=== PATIENT | male | born 1960 | race Caucasian/White ===

== ENCOUNTER → 2018-11-18 20:05 | Outpatient (CLI) | payer MEDICARE, SELFPAY | PROVIDERS: Family Provider Internal Medicine; PCP Internal Medicine | DX: G47.33 Obstructive sleep apnea (adult) (pediatric) (principal) | CPT/HCPCS: 95811 ==

== ENCOUNTER 2019-07-01 08:48 | Day surgery (SDC) | payer MEDICARE, SELFPAY ==
--- NOTE | 2019-06-02 02:15 | HP_ITS ---
Intake Vital Signs 06/02/19 Height 5 ft 8 in 06/02/19 Weight: 210 lb 06/02/19 Body Mass Index (BMI) 31.9 06/02/19 Blood Pressure 139/90 H 06/02/19 Blood Pressure Location Rt brachial 06/02/19 Respiratory Rate 16 06/02/19 Pulse Rate 81 06/02/19 Pulse Source Monitor 06/02/19 Temperature 98.2 F 06/02/19 Pulse Ox 96 06/02/19 Oxygen Delivery Method room air Intake Visit Reasons: C-Scope Consult Manager Java Required: No Is patient in pain?: No Allergies lisinopril Allergy (Unknown, Verified 06/02/19 14:07) Unknown metformin Allergy (Unknown, Verified 06/02/19 14:07) Unknown [facility] Medical History (Updated 06/02/19 @ 14:02 by Makeda Santana) Blood in stool (Acute) Constipation (Acute) Fatigue (Acute) Hypertension (Chronic) Sleep apnea (Acute) Hypogonadism in male (Acute) Hyperlipidemia (Acute) GERD (gastroesophageal reflux disease) (Acute) Diabetes mellitus (Acute) Surgical History (Updated 06/02/19 @ 14:02 by Makeda Santana) Hx of vasectomy (Acute) Hx of umbilical hernia repair (Acute) Hx of bilateral cataract extraction (Acute) Hx of colonoscopy (Acute) Family History (Updated 06/02/19 @ 14:03 by Makeda Santana) Mother CVA (cerebral vascular accident) Father Hypertension Brother Myocardial infarction Heart disease Social History (Updated 06/02/19 @ 14:15 by Alberto Borges MD) Smoking Status: Never smoker second hand exposure: No alcohol intake: current alcohol intake frequency: holidays/special occasions only substance use type: does not use caffeine: Yes what type of physical activity do you participate in: none frequency: does not exercise HPI HPI HPI: NEPTALI GREENE, is a 58 M who presents to the office today for HPI HPI Surgical H&P: Yes HPI: NEPTALI GREENE, is a 58 M who presents to the office today for surgical consultation regarding Hemoccult positive stool. The patient was referred by his primary care from Dr. Marcell Rodriguez written copy of my surgical consult recommendations will be returned to him. The patient is 58. He is on disability from chronic back pain. Is been a long-term diabetic. He thinks his most recent hemoglobin A1c was in the nines. States that he really does not pay attention to his diet. May 12 his hemoglobin was 6.1 with hematocrit 47.3 and a platelet count of 235,000. Glucose was 165 BUN 14 creatinine 0.96. Hemoglobin A1c was 9.4. His last colonoscopy was in 2012. Is a previous history of GERD with esophagitis. He has sleep apnea but states he cannot afford the machine. Hyperlipidemia. Is on low-dose aspirin. He denies personal history of colon polyps. I have assisted him in the past. He has requested that I assist him currently with his Hemoccult positive stool concerns. He was seen by another surgeon but would prefer not having him perform the procedure Exam Const General: cooperative, comfortable Nutritional Appearance: obese Orientation: alert, awake HENAR Head: normal to inspection Chest Chest palpation & inspection: normal inspection of the chest Resp Effort & Inspection: normal respiratory effort Auscultation: clear to auscultation bilaterally Cardio Rate: regular rate Rhythm: regular rhythm GI Palpation: soft, no hepatosplenomegaly Auscultation: normal bowel sounds Skin Other: Multiple areas bilateral upper extremities of self-induced excoriations Neuro Other: Some moderate memory deficit Extrem General: no calf tenderness bilaterally Psych Affect: normal affect Assessment & Plan Problems 1. Blood in stool K92.1 Plan I recommend the patient a esophagogastroduodenoscopy with possible biopsy and colonoscopy with possible biopsy or polypectomy as indicated. He is aware of the technique, benefits, risks, alternatives. He has had an opportunity to ask and have questions answered. We will schedule and proceed as noted. Because of his medical comorbidities I recommend proceeding with monitored anesthesia care. He is not demonstrating any anemia. He is on low-dose aspirin and this may be the eliciting feature. CC: Dr. Marcell Borges M.D., F.A.C.S. Coding Level of Care Code Off vis,new,level 3 Diagnoses Blood in stool K92.1 06/02/19 1415 <Electronically signed by Alberto zamora MD> Date _ Alberto Borges MD I have re-examined the patient. There are no clinical changes since date of exam.
[2019-06-02 14:05] VITALS: BMI 31.9
[2019-07-01] VITALS (7 sets, daily range): BP systolic 101–142; BP diastolic 73–77; PULSE 70–82; RESP 16–18; TEMP 36.5–36.7; O2SAT 94–99; BMI 31.6
[2019-07-01 09:30] LABS: Bedside Glucose 100 mg/dL (70-110)
--- NOTE | 2019-07-01 09:45 | IMM_PTH ---
PATIENT: NEPTALI GREENE LOC: EN U#:[id number] AGE/SX: 58/M ROOM: RE07/01/[address]: Dr. Alberto Borges MD : 1960 BED: DIS: 07/01/2019 SPEC #: [id number] RECD: 07/01/19 13:29 STATUS: MAURIZIO REQ #: [id number] ANGEL: 07/01/19 09:[address]: Alberto Borges DEPT: IMMUNOHISTOCHEMISTRY RECD BY: Angela Jacinto ENTERED: 07/01/19 13:30 SP TYPE: IMMUNO OTHR DR: Dr. Marcell Rodriguez MD Tissues: B - Stomach, NOS Procedures: H Pylori (initial) PHYSICIAN & INSTITUTION [place] [id number] SPECIMEN INFORMATION: Tissue Source: B - Antral biopsy Clinical Info: Blood in stool Specimen Number: [id number] CPT code: 22682 METHODOLOGY: Deparaffinized sections of prefer/formalin-fixed tissue or PAP/DQ stained slides are incubated with monoclonal/polyclonal antibodies/oligonucleotide probes. Localization is made via biotin free immunoperoxidase method. Appropriate controls are performed and reacted as expected. Results on target cell population are indicated in the following table: RESULTS: ANTIBODY / CLONE RESULT Block B H Pylori (polyclonal) negative These tests were developed and their performance characteristics determined by [facility]. They may not have been cleared or approved by the U.S. Food and Drug Administration. The FDA has determined that such clearance or approval is not necessary. INTERPRETATION: B. Antral biopsy: Negative for Helicobacter pylori organisms. SJ:jennifer 07/02/19
--- NOTE | 2019-07-01 09:45 | EGD_PTH ---
PATIENT: NEPTALI GREENE LOC: EN U#:[id number] AGE/SX: 58/M ROOM: RE07/01/[address]: Dr. Alberto Borges MD : 1960 BED: DIS: 07/01/2019 SPEC #: [id number] RECD: 07/01/19 11:35 STATUS: MAURIZIO JEANNIE #: [id number] ANGEL: 07/01/19 09:[address]: Alberto Borges DEPT: SURGICAL PATHOLOGY RECD BY: Anjel Gastelum ENTERED: 07/01/19 13:06 SP TYPE: EGD BIOPSY OTHR DR: Dr. Marcell Rodriguez MD Tissues: A - Duodenum, NOS B - Gastric mucous membrane C - Gastric mucous membrane D - Transverse colon E - Sigmoid colon biopsy Procedures: Special Stain Group II Surgery Specimen Level IV Alcian Blue/PAS (control) HEADER OPERATION: [place] [place] DIAGNOSIS: Blood in stool TISSUE SUBMITTED: A - Duodenal biopsy, B - Antral biopsy for histo and H. pylori, C - GE junction biopsy, D - Distal transverse polyp, E - Proximal sigmoid polyp MICROSCOPIC DIAGNOSIS A. Duodenal biopsy: A fragment of duodenal mucosa with mild congestion and hemorrhage. B. Antral biopsy: Mild gastritis. Focal mucosal congestion. See microscopic description and comment. C. GE junction, biopsy: Fragments of gastroesophageal mucosa with mild to moderate chronic inflammation and congestion. Intestinal metaplasia (goblet cell metaplasia) is not identified. See comment. D. Distal transverse colon polyp, biopsy: Tubular adenoma. E. Proximal sigmoid colon polyp, biopsy: Tubular adenoma. SJ:jennifer 07/02/19 COMMENT B. The results of immunohistochemistry for Helicobacter pylori will be reported separately ([id number]). C. Alcian blue/PAS stain with matched control is used in the evaluation of the specimen. MICROSCOPIC DESCRIPTION Slides are reviewed. B. The specimen shows fragments of gastric mucosa with chronic inflammatory cell infiltrates in the lamina propria consisting of lymphocytes and plasma cells, consistent with mild chronic gastritis. Focal mucosal congestion is also noted. GROSS DESCRIPTION A - Received in fixative is one container labeled with the patient's name and designated duodenal biopsy. The specimen consists of one irregular fragment of light davidson soft tissue that measures 0.4 x 0.3 x 0.1 cm. The specimen is totally submitted in one cassette. B - Received in fixative is one container labeled with the patient's name and designated antral biopsy. The specimen consists of one irregular fragment of light davidson soft tissue that measures 0.4 x 0.3 x 0.1 cm. The specimen is totally submitted in one cassette. C - Received in fixative is one container labeled with the patient's name and designated GE junction biopsy. The specimen consists of multiple irregular fragments of light davidson soft tissue that in aggregate measure 0.8 x 0.5 x 0.1 cm. The specimen is totally submitted in one cassette. D - Received in fixative is one container labeled with the patient's name and designated distal transverse polyp. The specimen consists of a davidson-pink polyp measuring 0.6 x 0.6 x 0.4 cm. The specimen is totally submitted in one cassette. E - Received in fixative is one container labeled with the patient's name and designated proximal sigmoid polyp. The specimen consists of a pink-red polyp measuring 0.8 x 0.8 x 0.5 cm. The apparent base is inked. The polyp is bisected and submitted entirely in one cassette. / SJ:jennifer 07/01/19 TC:1 CPT: 98146 x5, 09111
--- NOTE | 2019-07-01 11:02 | OP.ENDO_ITS ---
07/01/2019 Marcell Rodriguez Re : Upper GI endoscopy procedure for Chao Mancini Dear Jennifer This procedure was performed on Monday, July 01, 2019. My impressions and recommendations are as follows: Impressions : - LA Grade A reflux esophagitis. Biopsied. - Small hiatal hernia. - Erythematous mucosa in the antrum. Biopsied. - Erythematous duodenopathy. Biopsied. Recommendations : - Discharge patient to home. - Resume previous diet. - Continue present medications. - Await pathology results. - Telephone my office for pathology results in 1 week. This findings would correlate with hemocult positive stool My findings are described in the full procedure note, which is enclosed. If I can be of further assistance, please feel free to contact me at Doctor phone number(s): Work: . Sincerely, Alberto Borges MD 07/01/2019 11:02:04 AM This report has been signed electronically.
--- NOTE | 2019-07-01 11:08 | OP.ENDO_ITS ---
07/01/2019 Marcell Rodriguez Re : Colonoscopy procedure for Chao Mancini Dear Jennifer This procedure was performed on Monday, July 01, 2019. My impressions and recommendations are as follows: Impressions : - Non-thrombosed external hemorrhoids, non-thrombosed internal hemorrhoids, internal hemorrhoids that prolapse with straining, but spontaneously regress to the resting position (Grade II) and enlarged prostate found on digital rectal exam. - Diverticulosis in the entire examined colon--extensive - One 10 mm polyp in the distal transverse colon, removed with a hot snare. Resected and retrieved. - One 11 mm polyp in the proximal sigmoid colon, removed with a hot snare. Resected and retrieved. Recommendations : - Repeat colonoscopy in 3 years for surveillance based on pathology results. - Telephone my office for pathology results in 1 week. Polyps possible source of blood loss triggering hemocult test. - Continue present medications. My findings are described in the full procedure note, which is enclosed. If I can be of further assistance, please feel free to contact me at Doctor phone number(s): Work: . Sincerely, Alberto Borges MD 07/01/2019 11:08:03 AM This report has been signed electronically.
[2019-07-01] MEDS: Lactated Ringers 1,000 ML 100 ML IV (11:14)
== END 2019-07-01 11:54 | disposition home or self-care (01) ==
LOC: EN 08:49 → AC 08:52
PROVIDERS: Family Provider Family Medicine; PCP Family Medicine; Referring Provider Family Medicine; Visit Provider Surgery
PROC: 0DJD8ZZ Inspection of Lower Intestinal Tract, Via Natural or Artificial Opening Endoscopic (ICD-10-PCS; CPT 45378; principal; 2019-07-01 09:40)
DX: K29.70 Gastritis, unspecified, without bleeding (principal); K21.0 Gastro-esophageal reflux disease with esophagitis; K44.9 Diaphragmatic hernia without obstruction or gangrene; K64.1 Second degree hemorrhoids; K64.4 Residual hemorrhoidal skin tags; K57.30 Diverticulosis of large intestine without perforation or abscess without bleeding; D12.5 Benign neoplasm of sigmoid colon; D12.3 Benign neoplasm of transverse colon; I10 Essential (primary) hypertension; G47.30 Sleep apnea, unspecified; E78.00 Pure hypercholesterolemia, unspecified; E11.9 Type 2 diabetes mellitus without complications; F32.9 Major depressive disorder, single episode, unspecified; E66.9 Obesity, unspecified; Z68.31 Body mass index [BMI] 31.0-31.9, adult; Z79.4 Long term (current) use of insulin; Z79.82 Long term (current) use of aspirin; Z79.899 Other long term (current) drug therapy
CPT/HCPCS: 43239; 45385; 82962; 88305; 88313; 88342; J7120; J2405

== ENCOUNTER 2021-07-28 12:29 | Emergency (ER) | payer MEDICARE, SELFPAY ==
[2021-07-28 12:29] VITALS: BP 180/93; PULSE 84; RESP 16; TEMP 36.4; O2SAT 97; BMI 35.4
[2021-07-28] MEDS: Ondansetron 4 MG/2 ML Vial IV (15:43)
[2021-07-28] MEDS: 0.9% Normal Saline 1,000 ML 1000 ML IV (15:43)
[2021-07-28 15:56] LABS: Absolute Lymphocyte Count 2.99 X10^3/uL (0.83-4.51); Absolute Neutrophil Count 6.7 X10^3/uL (2.0-7.7); Basophil# 0.05 X10^3/uL; Basophil% 0.5 % (0-1); Eosinophil# 0.12 X10^3/uL; Eosinophils% 1.1 % (0-5); Hematocrit 46.2 % (40-54); Hemoglobin 15.9 g/dL (13.0-16.5); Lymphocyte # 2.99 X10^3/ul (0.83-4.51); Lymphocyte % 27.1 % (19-41); Mean Corp Hgb Conc 34.4 g/dL (32-36); Mean Corpuscular Hgb 30.2 pg (27.0-32.0); Mean Corpuscular Volume 87.7 fL (80-94); Mean Platelet Vol. 10.3 fl (6.2-12.0); Monocyte# 1.14 X10^3/uL; Monocyte% 10.3 % (0-10); NRBC Flagged by Analyzer 0 % (0-5); Neutrophil % 60.6 % (47-70); Platelet Count 261 K/mm3 (150-450); RBC Distribution Width CV 12.7 % (11.6-14.6); Red Blood Count 5.27 M/mm3 (4.6-6.2)
[2021-07-28 16:14] LABS: ALB/GLOB Ratio 0.9 RATIO (0.9-2.4); AST(SGOT) 38 U/L (15-37); Alanine Aminotransfer ALT/SGPT 73 U/L (16-61); Albumin, Serum 3.5 g/dL (3.2-5.0); Alkaline Phosphatase 69 U/L (45-117); Anion Gap 5 (5-15); BUN 19 mg/dL (7-18); BUN/Creat Ratio 18.3 RATIO (10-20); Calcium,Total 9.1 mg/dL (8.5-10.1); Chloride 104 mmol/L (98-107); Creatinine, Serum 1.04 mg/dL (0.70-1.30); EST Glomerular Filtration Rate 77 mL/min (>60); Est Glom Filt Rate - Afr Amer 94 mL/min (>60); Estimated Creatinine Clearance 73.99 ml/min; Glucose 117 mg/dL (74-106); Lipase 82 U/L (73-393); Potassium 3.8 mmol/L (3.5-5.1); Protein, Total 7.5 g/dL (6.4-8.2); Sodium Level 137 mmol/L (136-145)
[2021-07-28 16:37] LABS: Bacteria 0 SEEN /hpf (None Seen); Red Blood Cells-Urine 0 SEEN /hpf (0-5); Squamous Epithelial Cells - UA 0 SEEN /hpf (0-5); White Blood Cells 0 SEEN /hpf (0-5)
[2021-07-28 16:43] LABS: Color, Urine Yellow (Yellow); Glucose, Dipstick Normal (Normal); Ketone-Dipstick Negative (Negative); Leukocyte Esterase-Dipstick Negative /ul (Negative); Nitrite-Dipstick Negative (Negative); Occult Blood-Urine Negative /ul (Negative); Protein-Dipstick 15 mg/dl (Negative); Specific Gravity, Urine 1.015 (1.002-1.030); Urine Bilirubin Dipstick Negative (Negative); Urine Clarity Clear (Clear); Urine Urobilinogen Normal (Normal)
[2021-07-28 16:51] LABS: Mucous, Urine RARE /hpf (<or=2+)
[2021-07-28] MEDS: Acetaminophen 500 MG Tablet 1000 MG PO (16:51)
[2021-07-28 16:55] VITALS: BP 153/97; PULSE 79; RESP 16; O2SAT 97
--- NOTE | 2021-07-28 18:46 | ED.VIS.GI ---
HPI HPI - GI History of Present Illness Chief Complaint: Nausea/Vomiting Informant: patient Abdominal Pain/Flank Pain Onset: Weeks (1) Context: Gradual Onset Timing: Waxes and wanes Quality: Cramping (Mild) Location: Diffuse Worsened by: Nothing Nausea/Vomiting/Emesis GI Symptom: Positive for Nausea and Vomiting Quality: Negative for Coffee ground and Hematemesis Diarrhea/Melena/Hematochezia GI Symptom: Negative for Diarrhea, Melena and Hematochezia Stool Quality: Negative for Black, Maroon and BRB per rectum Narrative Narrative: Patient presents with abdominal pain, nausea, and vomiting that has been getting worse over the past week. Patient states it started 1 week ago and then started to get better. Patient states that then became worse again yesterday. Patient states that he has been having some nausea and vomiting. Patient states he is unable to keep anything down. Patient denies any diarrhea, melena, or hematochezia. Patient denies any dysuria or hematuria. Patient admits to some subjective chills but denies any fevers. Patient states his abdominal pain is just mild cramping. reports that the patient started a new diabetic medication recently. [facility] Medical History Blood in stool Constipation Diabetes mellitus Diabetic retinopathy associated with type 2 diabetes mellitus Fatigue GERD (gastroesophageal reflux disease) Hyperlipidemia Hypertension Hypogonadism in male Sleep apnea Home Medications aspirin 81 mg tablet,delayed release 81 mg PO DAILY 06/02/19 [History Last Taken Unknown] cholecalciferol (vitamin D3) 25 mcg (1,000 unit) capsule 1,000 unit PO DAILY 06/02/19 [History Last Taken Unknown] fluoxetine 20 mg capsule 20 mg PO DAILY #90 cap 06/02/19 [History Last Taken Unknown] losartan 100 mg tablet 100 mg PO DAILY #90 tab 06/02/19 [History Last Taken Unknown] olanzapine 5 mg tablet 5 mg PO QHS #90 tab 06/02/19 [History Last Taken Unknown] pravastatin 40 mg tablet 40 mg PO QHS #90 tab 06/02/19 [History Last Taken Unknown] blood sugar diagnostic #400 ea 12/28/20 [Rx Last Taken Unknown] blood-glucose meter #1 ea 12/28/20 [Rx Last Taken Unknown] insulin regular hum U-500 conc See Rx Instructions SC TID #42 ml 02/04/21 [Rx Last Taken Unknown] omeprazole 40 mg capsule,delayed release 40 mg PO DAILY cap 02/04/21 [History Last Taken Unknown] dulaglutide [Trulicity] 1.5 mg SUBCUT WE 07/28/21 [History Last Taken Unknown] Allergy/AdvReac Type Severity Reaction Status Date / Time lisinopril Allergy Intermediate Hives Verified 07/28/21 12:31 metformin Allergy Intermediate Effects Verified 07/28/21 12:31 Kidneys Family History Mother CVA (cerebral vascular accident) Father Hypertension Brother Myocardial infarction Heart disease Surgical History Hx of bilateral cataract extraction Hx of colonoscopy Hx of umbilical hernia repair Hx of vasectomy Social History Smoking Status: Never smoker second hand exposure: No alcohol intake: current alcohol intake frequency: holidays/special occasions only substance use type: does not use caffeine: Yes what type of physical activity do you participate in: none frequency: does not exercise ROS ROS ED Constitutional Constitutional ED: Reports chills and subjective; Denies fever(s) Eyes Eyes: Denies blurry vision or change in vision ENT ENT ED: Denies rhinorrhea or sore throat Cardiovascular Cardiovascular: Denies chest pain or palpitations Respiratory/Chest Respiratory/Chest: Denies cough or dyspnea Gastrointestinal Gastrointestinal: Reports nausea and vomiting Genitourinary Genitourinary ED: Denies dysuria or hematuria Musculoskeletal Musculoskeletal: Denies back pain or neck pain Integumentary Denies abscess or rash Neurologic Neurologic: Reports headache(s); Denies weakness Allergic/Immunologic Allergic/Immunologic ED: Denies mouth swelling or urticaria EXAM Physical Exam Const Vital Signs: 07/28/21 12:29 07/28/21 16:55 Temperature 97.5 F L Temperature Source Temporal Pulse Rate 84 79 Respiratory Rate 16 16 Blood Pressure 180/93 H 153/97 H Blood Pressure Mean 122 115 Pulse Ox 97 97 Oxygen Delivery Method Room Air Room Air Positive well nourished and well developed General Appearance ED: well developed HEENT Reports moist mucous membranes Neck supple and no JVD Resp normal respiratory effort and clear to auscultation bilaterally Cardio regular rate, regular rhythm and no murmurs GI normal to inspection, nondistended, normoactive bowel sounds, non-tender and non-distended Auscultation: normoactive bowel sounds Palpation: soft Extremity normal to inspection General Extremety ED: Negative for edema or tenderness General Extremity: Negative for edema Neuro oriented x3, CN's II-XII intact bilaterally, moves all extremities, no sensory deficits noted and gait normal Sensorium / Orientation: alert Motor Exam: strength 5/5 throughout Psych mental status grossly normal Skin no rashes or lesions noted MDM MDM MDM Narrative Medical decision making narrative: Patient was given IV fluids, morphine, and Tylenol. CBC was within normal limits. Comprehensive metabolic profile was within normal limits. Urinalysis does not show any evidence of urinary tract infection. Patient is feeling better on reevaluation. Patient was advised of his findings. Patient was instructed to follow-up with his primary care physician in 3 to 5 days. Patient and question whether or not he should stop his new diabetic medication. I informed him that he should contact his primary care physician regarding this. Patient and his understood and were agreeable with the plan. All questions were answered. Lab Data Labs: Laboratory Results - last 24 hr 07/28/21 07/28/21 07/28/21 15:44 15:44 16:31 WBC 11.0 RBC 5.27 Hgb 15.9 Hct 46.2 MCV 87.7 MCH 30.2 MCHC 34.4 RDW Std Deviation 41.0 RDW Coeff of Eugene 12.7 Plt Count 261 MPV 10.3 Immature Gran % (Auto) 0.400 Neut % (Auto) 60.6 Lymph % (Auto) 27.1 Sullivan % (Auto) 10.3 H Eos % (Auto) 1.1 Baso % (Auto) 0.5 Absolute Neuts (auto) 6.7 Absolute Lymphs (auto) 2.99 Nucleated RBC % 0 Sodium 137 Potassium 3.8 Chloride 104 Carbon Dioxide 28.0 Anion Gap 5 BUN 19 H Creatinine 1.04 Estim Creat Clear Calc 73.99 Est GFR (MDRD) Af Amer 94 Est GFR (MDRD) Non-Af 77 BUN/Creatinine Ratio 18.3 Glucose 117 H Calcium 9.1 Total Bilirubin 0.70 AST 38 H ALT 73 H Alkaline Phosphatase 69 Total Protein 7.5 Albumin 3.5 Globulin 4.0 Albumin/Globulin Ratio 0.9 Lipase 82 Urine Color Yellow Urine Clarity Clear Urine pH 7.0 Ur Specific Ona 1.015 Urine Protein 15 H Urine Glucose (UA) Normal Urine Ketones Negative Urine Occult Blood Negative Urine Nitrite Negative Urine Bilirubin Negative Urine Urobilinogen Normal Ur Leukocyte Esterase Negative Urine RBC 0 SEEN Urine WBC 0 SEEN Ur Squamous Epith Cells 0 SEEN Urine Bacteria 0 SEEN Urine Mucus RARE Discharge Plan Triage Chief Complaint: Nausea/Vomiting ED Provider: Baltazar Hollins Dx/Rx/DC Orders Clinical Impression: Nausea and vomiting Instructions: ED Vomiting (Adult) Prescriptions: No Action fluoxetine 20 mg capsule 20 mg PO DAILY Qty: 90 RF: 0 losartan 100 mg tablet 100 mg PO DAILY Qty: 90 RF: 0 olanzapine 5 mg tablet 5 mg PO QHS Qty: 90 RF: 0 pravastatin 40 mg tablet 40 mg PO QHS Qty: 90 RF: 0 cholecalciferol (vitamin D3) 1,000 unit capsule 1,000 unit PO DAILY RF: 0 aspirin [Adult Low Dose Aspirin] 81 mg tablet,delayed release (DR/EC) 81 mg PO DAILY RF: 0 omeprazole 40 mg capsule,delayed release(DR/EC) 40 mg PO DAILY RF: 0 Humulin R U-500 (Conc) Kwikpen 500 unit/mL (3 mL) insulin pen See Rx Instructions SC TID Qty: 42 RF: 2 Trulicity 1.5 mg/0.5 mL pen injector 1.5 mg SUBCUT WE RF: 0 (DME) blood-glucose meter [True Metrix Glucose Meter] Misc See Rx Instructions .ROUTE .MEDSUPPLY Qty: 1 RF: 0 (DME) True Metrix Glucose Test Strip Strip See Rx Instructions .ROUTE .MEDSUPPLY Qty: 400 RF: 3 Primary Care Provider: Marcell Rodriguez Referrals: Marcell Rodriguez MD [Primary Care Provider] - 3-5 Days Disposition Disposition: Home, Self Care
[2021-07-28 19:01] VITALS: BP 127/79; PULSE 94; RESP 18; O2SAT 99
--- NOTE | 2021-07-28 19:01 | ED.RN ---
THIS NURSE REVIEWED D/C INSTRUCTIONS WITH PT AND VISITOR. BOTH VERBALIZED UNDERSTANDING OF INSTRUCTIONS. IV D/C. IV CATHETER INTACT. PT TOLERATED WELL. PT DENIES FURTHER NEEDS OR QUESTIONS AT THIS TIME
== END 2021-07-28 19:02 | disposition home or self-care (01) ==
PROVIDERS: Emergency Provider Emergency Medicine; PCP Family Medicine
DX: R11.2 Nausea with vomiting, unspecified (principal); R10.9 Unspecified abdominal pain; I10 Essential (primary) hypertension; E78.5 Hyperlipidemia, unspecified; G47.30 Sleep apnea, unspecified; K21.9 Gastro-esophageal reflux disease without esophagitis; E11.319 Type 2 diabetes mellitus with unspecified diabetic retinopathy without macular edema; Z79.4 Long term (current) use of insulin; Z79.82 Long term (current) use of aspirin; Z79.899 Other long term (current) drug therapy
CPT/HCPCS: 80053; 81001; 83690; 85025; 96361; 96374; 99283; J7030; A4216; J2405

== ENCOUNTER 2021-10-21 09:20 | Emergency (ER) | payer MEDICARE, SELFPAY ==
[2021-10-21 09:21] VITALS: BP 197/95; PULSE 97; RESP 18; TEMP 35.9; O2SAT 97; BMI 33.5
[2021-10-21 09:36] LABS: Bedside Glucose 292 mg/dL (70-110)
--- NOTE | 2021-10-21 10:28 | EX.ED.GENINJ ---
HPI History of Present Illness Chief Complaint: Head Injury Informant: patient and spouse/S.O. Narrative Narrative: Patient had a mechanical slip and fall on ice. He hit the side of his head. He has laceration of the right ear. Bleeding is controlled with pressure. He has no loss of consciousness. He is on no blood thinners other than an aspirin. He has no headache. No numbness tingling or weakness. This fall was mechanical and not syncope. [facility] Medical History Blood in stool Constipation Diabetes mellitus Diabetic retinopathy associated with type 2 diabetes mellitus Fatigue GERD (gastroesophageal reflux disease) Hyperlipidemia Hypertension Hypogonadism in male Sleep apnea Home Medications aspirin 81 mg tablet,delayed release 81 mg PO DAILY 06/02/19 [History Last Taken Unknown] cholecalciferol (vitamin D3) 25 mcg (1,000 unit) capsule 1,000 unit PO DAILY 06/02/19 [History Last Taken Unknown] fluoxetine 20 mg capsule 20 mg PO DAILY #90 cap 06/02/19 [History Last Taken Unknown] losartan 100 mg tablet 100 mg PO DAILY #90 tab 06/02/19 [History Last Taken Unknown] olanzapine 5 mg tablet 5 mg PO QHS #90 tab 06/02/19 [History Last Taken Unknown] pravastatin 40 mg tablet 40 mg PO QHS #90 tab 06/02/19 [History Last Taken Unknown] blood sugar diagnostic #400 ea 12/28/20 [Rx Last Taken Unknown] omeprazole 40 mg capsule,delayed release 40 mg PO DAILY cap 02/04/21 [History Last Taken Unknown] blood-glucose meter #1 ea 10/06/21 [Rx Last Taken Unknown] insulin regular hum U-500 conc See Rx Instructions SC TID #18 ml 10/06/21 [Rx Last Taken Unknown] spironolactone 50 mg tablet 50 mg PO DAILY #90 tab 10/06/21 [Rx Last Taken Unknown] cephalexin 500 mg PO Q6 #28 cap 10/21/21 [Rx Last Taken Unknown] Allergy/AdvReac Type Severity Reaction Status Date / Time lisinopril Allergy Intermediate Hives Verified 10/21/21 09:21 metformin Allergy Intermediate Effects Verified 10/21/21 09:21 Kidneys Family History Mother CVA (cerebral vascular accident) Father Hypertension Brother Myocardial infarction Heart disease Surgical History Hx of bilateral cataract extraction Hx of colonoscopy Hx of umbilical hernia repair Hx of vasectomy Social History Smoking Status: Never smoker second hand exposure: No alcohol intake: current alcohol intake frequency: holidays/special occasions only substance use type: does not use caffeine: Yes what type of physical activity do you participate in: none frequency: does not exercise ROS ROS ED Constitutional Constitutional ED: Denies fever(s) Eyes Eyes: Denies change in vision ENT ENT ED: Reports ear pain; Denies rhinorrhea or sore throat Cardiovascular Cardiovascular: Denies palpitations Respiratory/Chest Respiratory/Chest: Denies cough or dyspnea Gastrointestinal Gastrointestinal: Denies nausea or vomiting Musculoskeletal Musculoskeletal: Denies back pain or neck pain Integumentary Reports other Details: Laceration right ear Neurologic Neurologic: Denies headache(s), paresthesias or weakness Hematologic/Lymphatic Hematologic/Lymphatic: Denies easy bleeding or easy bruising Allergic/Immunologic Allergic/Immunologic ED: Denies urticaria EXAM Physical Exam Const Vital Signs: 10/21/21 09:21 10/21/21 10:48 Temperature 96.7 F L Temperature Source Temporal Pulse Rate 97 Respiratory Rate 18 Respiratory Effort Normal Non-Labored Blood Pressure 197/95 H Blood Pressure Mean 129 Pulse Ox 97 Oxygen Delivery Method Room Air Room Air Positive well nourished and well developed General Appearance ED: well developed and NAD HEENT HEENT Narrative: Patient has a laceration of the outer edge of his right ear. It crosses in and then rises up slightly. Total length is approximately 2 cm. Bleeding is controlled. I do not see any contusion. I do not see notable involvement of the cartilage at this point. There is no bruising of the mastoid behind the area. No bruising or tenderness on the head. No facial tenderness. Eyes PERRL and EOMs intact bilaterally Neck full ROM Neck Narrative: No tenderness or pain with range of motion General: Negative for tenderness Resp normal respiratory effort and clear to auscultation bilaterally Cardio regular rhythm Rate: regular rate Back/Spine normal to inspection Back/Spine Narrative: No cervical, thoracic or lumbar spinal tenderness. Thoracic Spine / Upper Back: Negative for thoracic spinal tenderness Extremity normal to inspection and full ROM Neuro oriented x3 and no sensory deficits noted Sensorium / Orientation: alert, oriented to person and oriented to place Motor Exam: strength 5/5 throughout Psych mental status grossly normal Skin Skin Narrative: Laceration to right ear as above. MDM MDM MDM Narrative Medical decision making narrative: Procedure: Suture laceration: I discussed risk benefits options with the patient. He would just like this to be closed. I explained that ears will scar. There is risk of infection. There is risk of poor healing due to cartilage. The area around the wound was sterilely prepped and draped. It was anesthetized around the ear with 1% lidocaine a total of 2 cc. I had placed a small amount of let on the wound for short time so there would be no bleeding. The areas were not really white or affected by let significantly. The area was then copiously scrubbed and all flaps lifted off. It was irrigated extensively to get this clean. This was a very complex laceration with multiple angles. It was both on the edge front and behind the ear and stellate in flap fashion. It was closed with nine 6-0 Ethilon's with good cosmesis and hemostasis. The watch this and is happy with the results. We were able to get skin coverage over any cartilage areas that were visible. I explained that he needs to be very low threshold for return if he is having redness pain or swelling. Infection is still high risk. I then wrapped with Vaseline show gauze in crevices of the ear gauze behind in front of the ear and then we are putting a mildly compressive wrap on the outside gently. We discussed care this wound. Sutures should stay in for about 10 days. He can use ointment on them to prevent crusting. The sutures had to be quite small due to the areas involved and they will be somewhat difficult to get out. I explained this to the patient. All questions were answered. Lab Data Attestation: I reviewed the patient's lab results. Labs: Laboratory Results - last 24 hr 10/21/21 09:32 POC Glucose 292 H Discharge Plan Triage Chief Complaint: Head Injury ED Provider: Deondre Cameron Dx/Rx/DC Orders Clinical Impression: Fall due to ice or snow, Laceration of ear, external, right, complicated Instructions: ED Laceration: All Closures Prescriptions: New cephalexin [cephalexin] 500 MG capsule 500 mg PO Q6 Qty: 28 RF: 0 No Action fluoxetine 20 mg capsule 20 mg PO DAILY Qty: 90 RF: 0 losartan 100 mg tablet 100 mg PO DAILY Qty: 90 RF: 0 olanzapine 5 mg tablet 5 mg PO QHS Qty: 90 RF: 0 pravastatin 40 mg tablet 40 mg PO QHS Qty: 90 RF: 0 cholecalciferol (vitamin D3) 1,000 unit capsule 1,000 unit PO DAILY RF: 0 aspirin [Adult Low Dose Aspirin] 81 mg tablet,delayed release (DR/EC) 81 mg PO DAILY RF: 0 omeprazole 40 mg capsule,delayed release(DR/EC) 40 mg PO DAILY RF: 0 Humulin R U-500 (Conc) Kwikpen 500 unit/mL (3 mL) insulin pen See Rx Instructions SC TID Qty: 18 RF: 2 (DME) blood-glucose meter [True Metrix Glucose Meter] Misc See Rx Instructions .ROUTE .MEDSUPPLY Qty: 1 RF: 0 spironolactone 50 mg tablet 50 mg PO DAILY Qty: 90 RF: 3 (DME) True Metrix Glucose Test Strip Strip See Rx Instructions .ROUTE .MEDSUPPLY Qty: 400 RF: 3 Primary Care Provider: Marcell Rodriguez Referrals: Marcell Rodriguez MD [Primary Care Provider] - 10 Day for suture removal Disposition Disposition: Home, Self Care
[2021-10-21] MEDS: Lidocaine 1% (20 ml mdv) 20 ML Vial INFILT (10:47)
[2021-10-21] MEDS: Lidocaine/Epi/Tetracaine 50 ML 1 APPLIC TOPICAL (10:47)
[2021-10-21] MEDS: Cephalexin 250 MG Capsule 500 MG PO (10:47)
[2021-10-21 12:18] VITALS: BP 128/78; PULSE 66; RESP 12; TEMP 36.9; O2SAT 98
== END 2021-10-21 12:19 | disposition home or self-care (01) ==
PROVIDERS: Emergency Provider Emergency Medicine; PCP Family Medicine; Visit Provider Emergency Medicine
DX: S01.311A Laceration without foreign body of right ear, initial encounter (principal); E11.9 Type 2 diabetes mellitus without complications; Z79.4 Long term (current) use of insulin; E78.5 Hyperlipidemia, unspecified; I10 Essential (primary) hypertension; W00.0XXA Fall on same level due to ice and snow, initial encounter; Y93.9 Activity, unspecified; Y92.9 Unspecified place or not applicable; K21.9 Gastro-esophageal reflux disease without esophagitis; Z79.82 Long term (current) use of aspirin; Z79.899 Other long term (current) drug therapy
CPT/HCPCS: 12051; 82962; 99283

== ENCOUNTER 2021-11-18 06:00 | Day surgery (SDC) | payer MEDICARE, SELFPAY ==
[2021-11-18] MEDS: Lactated Ringers 1,000 ML 15 ML IV (06:38)
[2021-11-18 06:40] VITALS: BP 144/93; PULSE 78; RESP 19; TEMP 36.5; O2SAT 96; BMI 33.5
[2021-11-18] MEDS: Dextrose 10%-Water 250 ML 999 ML IV (07:04)
--- NOTE | 2021-11-18 07:25 | PCM.OPRPT ---
Report of Operation Date of Procedure: 11/18/21 Pre-Operative Diagnosis: onychomycosis of b/l feet Post-Operative Diagnosis: onychomycosis of b/l feet Surgery/Procedure Performed:: phenol matrixectomy 1-5 b/l Description of Surgical Findings:: This patient is a pleasant 61 year old male with diabetes who suffers from severe thickening of multiple toenails leading to ingrown nail and at various times in a year, infection. He has been followed by me in my clinic and has undergone debridement every 3 months. This patient is now interested in having his nails removed. He has been interested in removing his toenails in the past but his diabetes has been poorly controlled. He now has an a1c performed in September 2021 that was 7.4. He has requested to proceed with removal. On exam, the toenails that lead to ingrown are his left 1st, 2nd, 3rd and 5th and his right 1st and 2nd. The remaining toenails are long but are not as dystrophic. He has requested to remove all ten. I discussed doing this procedure as a staged procedure in my clinic, one where I may removed 2-3 nails at a time and then proceed weekly. He has requested doing it all at once. I discussed risks of this procedure not limited to infection, pain, swelling, bleeding, slow wound healing, recurrent nail formation, loss of toe from infection or from slow healing. I also discussed the importance of keeping the toes clean. I informed patient that the drainage can lead to blistering so keeping wool or guaze between toes can lower the risk of blistering. I discussed post-op care to include soaking the toes bid until the toes are healed. I again reminded patient how important it is to keep his sugars controlled. On exam, this patient has palpable and audible pulses. I offered pvr prior to the procedure but this patient did not feel that was necessary. Patient was seen prior to the procedure and regarded stable. He was transferred to operating room and placed on the operating room table in the supine position. He was placed under mac anesthesia and a local field block was injected to each toe. 2 cc of 1% lidocaine plain was injected to each toe. the b/l lower extremity was then prepped and draped in the usual aseptic technique. time out was performed. Attention was then directed to the right foot. Using a digital tourniquet to the first and 2nd toe, the right 1st and 2nd toenail was freed with an elevator and then completely removed. a curette was used to assure no spicule formation. The nail bed was inspected and no nail bed injury was present. Three applications of phenol was then used x 30 seconds to each toe followed by an alcohol rinse. The tourniquet was removed and hyperemic response was noted. Attention was then directed to the right 3rd and right 4th toe. Using a digital tourniquet to the third and 4th toe, the right 3rd and 4th toenail was freed with an elevator and then completely removed. a curette was used to assure no spicule formation. The nail bed was inspected and no nail bed injury was present. Three applications of phenol was then used x 30 seconds to each toe followed by an alcohol rinse. The tourniquet was removed and hyperemic response was noted. Attention was then directed to the right 5th toe. Using a digital tourniquet to the 5th toe, the right 5th toenail was freed with an elevator and then completely removed. a curette was used to assure no spicule formation. The nail bed was inspected and no nail bed injury was present. Three applications of phenol was then used x 30 seconds to each toe followed by an alcohol rinse. The tourniquet was removed and hyperemic response was noted Attention was then directed to the left foot. Using a digital tourniquet to the first and 2nd toe, the left 1st and 2nd toenail was freed with an elevator and then completely removed. a curette was used to assure no spicule formation. The nail bed was inspected and no nail bed injury was present. Three applications of phenol was then used x 30 seconds to each toe followed by an alcohol rinse. The tourniquet was removed and hyperemic response was noted. Attention was then directed to the left 3rd and right 4th toe. Using a digital tourniquet to the third and 4th toe, the left 3rd and 4th toenail was freed with an elevator and then completely removed. a curette was used to assure no spicule formation. The nail bed was inspected and no nail bed injury was present. Three applications of phenol was then used x 30 seconds to each toe followed by an alcohol rinse. The tourniquet was removed and hyperemic response was noted. Attention was then directed to the left 5th toe. Using a digital tourniquet to the 5th toe, the left 5th toenail was freed with an elevator and then completely removed. a curette was used to assure no spicule formation. The nail bed was inspected and no nail bed injury was present. Three applications of phenol was then used x 30 seconds to each toe followed by an alcohol rinse. The tourniquet was removed and hyperemic response was noted. Dressing was then applied to the b/l feet consisting of topical antibiotic, adaptic, 4x4 guaze, sara and devonte. This patient was then awakened and found to be in stable condition. He was transferred to pacu in stable condition. he was given instructions on post-op care. he will follow-up in my clinic as scheduled. Surgeon: Omar Ortiz Type of Anesthesia: MAC/Supplemental/Local Estimated Blood Loss (mL): <5 ml Grafts/Implants Used: none
[2021-11-18 07:31] LABS: Bedside Glucose 87 mg/dL (74-106)
[2021-11-18 07:31] LABS: Bedside Glucose 57 mg/dL (74-106)
[2021-11-18] MEDS: Lidocaine 1% (50 ml mdv) 50 ML Vial (08:29)
[2021-11-18] MEDS: BACITRACIN/POLYMYXIN B 15 GM Tube 1 APPLIC (08:30)
--- NOTE | 2021-11-18 08:54 | PCM.DC ---
Discharge Instructions Diet Discharge Diet: Light diet - advance as tolerated and - Activity Discharge Activity: Return to Normal Activity Return to work on:: 11/21/21December shower in (days): 1 Weight Bearing Status: Weight bearing as tolerated Dressing / Incision Call your doctor if your incision/area has: Continuous Slow Oozing, Sudden Increased Bleeding, Increased Redness and Foul Smelling Discharge Call your doctor if you observe: Fever of 101 or Higher, Coldness, Increased Pain and Change in Color Change Dressing in: 1 day Remove Dressing in: 1 day Cleanse incision/area with: Soap & Water and - Additional Dressing/Incision Instructions:: soak the toe in soap and water or epsom salts twice daily x 10 minutes Follow Up Care Please Follow Up With: Omar Ortiz DPM When: as scheduled Test Results: Test results from this visit will be discussed in further detail at your follow-up appointment, if applicable. Discharge Plan Admission Primary Reason for Your Visit: removal of toenails1-5 b/l feet Attending Provider: Omar Ortiz Primary Care Provider: Marcell Rodriguez Discharge Orders/Prescriptions Prescriptions: Continued fluoxetine 20 mg capsule 20 mg PO DAILY Qty: 90 RF: 0 losartan 100 mg tablet 100 mg PO DAILY Qty: 90 RF: 0 olanzapine 5 mg tablet 5 mg PO QHS Qty: 90 RF: 0 pravastatin 40 mg tablet 40 mg PO QHS Qty: 90 RF: 0 cholecalciferol (vitamin D3) 1,000 unit capsule 1,000 unit PO DAILY RF: 0 aspirin [Adult Low Dose Aspirin] 81 mg tablet,delayed release (DR/EC) 81 mg PO DAILY RF: 0 omeprazole 40 mg capsule,delayed release(DR/EC) 40 mg PO DAILY RF: 0 (DME) blood-glucose meter [True Metrix Glucose Meter] Misc See Rx Instructions .ROUTE .MEDSUPPLY Qty: 1 RF: 0 spironolactone 50 mg tablet 50 mg PO DAILY Qty: 90 RF: 3 Humulin R U-500 (Conc) Insulin 500 unit/mL Solution 70 unit continuous subcutaneous infusion 1200 RF: 0 Humulin R U-500 (Conc) Insulin 500 unit/mL Solution 125 unit SUBCUT QHS RF: 0 Humulin R U-500 (Conc) Kwikpen 500 unit/mL (3 mL) insulin pen 105 unit SC DAILY RF: 0 (DME) True Metrix Glucose Test Strip Strip See Rx Instructions .ROUTE .MEDSUPPLY Qty: 400 RF: 3 Referrals / Follow Up: Marcell Rodriguez MD [Primary Care Provider] - Disposition Disposition (needs filled in before D/C Order can be placed): Home, Self Care
[2021-11-18 09:00] VITALS: BP 122/71; BP 144/93; PULSE 88; RESP 16; TEMP 36.9; O2SAT 93
[2021-11-18 09:05] VITALS: BP 116/82; BP 144/93; PULSE 83; RESP 16; O2SAT 93
[2021-11-18 09:06] LABS: Bedside Glucose 70 mg/dL (74-106)
[2021-11-18 09:10] VITALS: BP 118/76; BP 144/93; PULSE 86; RESP 16; O2SAT 93
[2021-11-18 09:15] VITALS: BP 117/77; BP 144/93; PULSE 87; RESP 16; TEMP 36.4; O2SAT 93
[2021-11-18 09:46] VITALS: BP 144/93
--- NOTE | 2021-11-18 09:49 | SUR.PHASEII ---
PATIENT'S BG WAS 70 IN PACU PER ASA AZEVEDO AND HE HAS HAD A TOTAL OF 3 ORANGE JUICES AND ONE PACK OF COOKIES. NO SYMPTOMS OF HYPOGLYCEMIA.
== END 2021-11-18 23:59 | disposition home or self-care (01) ==
LOC: SDC 06:07 → AC 06:07
PROVIDERS: PCP Family Medicine; Referring Provider Podiatrist Foot & Ankle Surgery; Visit Provider Podiatrist Foot & Ankle Surgery
PROC: (CPT 11750; principal; 2021-11-18 07:15)
DX: B35.1 Tinea unguium (principal); E11.319 Type 2 diabetes mellitus with unspecified diabetic retinopathy without macular edema; Z79.4 Long term (current) use of insulin; K21.9 Gastro-esophageal reflux disease without esophagitis; E78.5 Hyperlipidemia, unspecified; G47.30 Sleep apnea, unspecified; I10 Essential (primary) hypertension; Z79.82 Long term (current) use of aspirin; Z79.899 Other long term (current) drug therapy; E66.9 Obesity, unspecified; F32.A Depression, unspecified; E78.00 Pure hypercholesterolemia, unspecified; Z68.33 Body mass index [BMI] 33.0-33.9, adult
CPT/HCPCS: 11750; 82962; 87426; C9803; J7120; J2405

== ENCOUNTER 2021-11-18 14:24 | Emergency (ER) | payer MEDICARE, SELFPAY ==
[2021-11-18 14:25] VITALS: BP 143/82; PULSE 94; RESP 18; TEMP 36.6; O2SAT 98; BMI 33.5
--- NOTE | 2021-11-18 15:15 | ED.VIS.LOWEX ---
HPI History of Present Illness HPI Narrative: Patient presents with persistent bleeding from his right great toe nailbed. Patient had all 10 toenails removed today by his manager environmental services. Patient states that the medial aspect of the nailbed on the right great toe has been persistently bleeding. Patient denies any numbness or weakness. states she held pressure for 15 minutes but it is still bleeding after this. Patient then came to the emergency department for further evaluation. Chief Complaint: Wound Check Onset/Context/Timing Onset: Today Timing: Continuous Location: Right great toe nailbed Worsened by: Nothing Relieved by: Nothing Associated Symptoms Associated Symptoms: Negative for Parasthesia, Weakness and Loss of Funtion PFSH PFS Medical History Back pain Blood in stool Constipation CPAP (continuous positive airway pressure) dependence Depression Diabetes mellitus Diabetic retinopathy associated with type 2 diabetes mellitus Dietary restriction Fatigue GERD (gastroesophageal reflux disease) High cholesterol Hx of fracture of lower leg Hyperlipidemia Hypertension Hypogonadism in male Insulin dependent diabetes mellitus Non-smoker Sleep apnea Home Medications aspirin 81 mg tablet,delayed release 81 mg PO DAILY 06/02/19 [History Last Taken Unknown] cholecalciferol (vitamin D3) 25 mcg (1,000 unit) capsule 1,000 unit PO DAILY 06/02/19 [History Last Taken Unknown] fluoxetine 20 mg capsule 20 mg PO DAILY #90 cap 06/02/19 [History Last Taken Unknown] losartan 100 mg tablet 100 mg PO DAILY #90 tab 06/02/19 [History Last Taken Unknown] olanzapine 5 mg tablet 5 mg PO QHS #90 tab 06/02/19 [History Last Taken Unknown] pravastatin 40 mg tablet 40 mg PO QHS #90 tab 06/02/19 [History Last Taken Unknown] blood sugar diagnostic #400 ea 12/28/20 [Rx Last Taken Unknown] omeprazole 40 mg capsule,delayed release 40 mg PO DAILY cap 02/04/21 [History Last Taken Unknown] blood-glucose meter #1 ea 10/06/21 [Rx Last Taken Unknown] spironolactone 50 mg tablet 50 mg PO DAILY #90 tab 10/06/21 [Rx Last Taken Unknown] Humulin R U-500 (Conc) Insulin 70 unit CONTINUOUS SUBCUTANEOUS INFUSION 1200 11/11/21 [History Last Taken Unknown] Humulin R U-500 (Conc) Insulin 125 unit SUBCUT QHS 11/11/21 [History Last Taken Unknown] Humulin R U-500 (Conc) Kwikpen 105 unit SC DAILY 11/11/21 [History Last Taken Unknown] Allergy/AdvReac Type Severity Reaction Status Date / Time lisinopril Allergy Intermediate Hives Verified 11/18/21 14:27 metformin Allergy Intermediate Effects Verified 11/18/21 14:27 Kidneys Family History Mother CVA (cerebral vascular accident) Father Hypertension Brother Myocardial infarction Heart disease Surgical History History of esophagogastroduodenoscopy (EGD) Hx of bilateral cataract extraction Hx of colonoscopy Hx of umbilical hernia repair Hx of vasectomy Social History Smoking Status: Never smoker second hand exposure: No alcohol intake: current alcohol intake frequency: holidays/special occasions only substance use type: does not use caffeine: Yes what type of physical activity do you participate in: none frequency: does not exercise ROS ROS ED Constitutional Constitutional ED: Denies chills or fever(s) Eyes Eyes: Denies blurry vision or change in vision ENT ENT ED: Denies rhinorrhea or sore throat Cardiovascular Cardiovascular: Denies chest pain or palpitations Respiratory/Chest Respiratory/Chest: Denies cough or dyspnea Gastrointestinal Gastrointestinal: Denies nausea or vomiting Genitourinary Genitourinary ED: Denies dysuria or hematuria Musculoskeletal Musculoskeletal: Denies back pain or neck pain Integumentary Denies abscess or rash Neurologic Neurologic: Denies headache(s) or weakness Allergic/Immunologic Allergic/Immunologic ED: Denies mouth swelling or urticaria EXAM Physical Exam Const Vital Signs: 11/18/21 14:25 Temperature 97.9 F Temperature Source Temporal Pulse Rate 94 Respiratory Rate 18 Blood Pressure 143/82 H Blood Pressure Mean 102 Pulse Ox 98 Oxygen Delivery Method Room Air Positive well nourished and well developed General Appearance ED: well developed and NAD HEENT Reports moist mucous membranes Neck full ROM Extremity Extremity Narrative: There is some mild bleeding from the nailbed of the right great toe. There is no bony crepitance or step-off. There is good range of motion of the right great toe. Sensation was intact to light touch in all digits. Capillary refill was less than 2 seconds in all digits. Neuro oriented x3, CN's II-XII intact bilaterally, moves all extremities and no sensory deficits noted Sensorium / Orientation: alert Motor Exam: strength 5/5 throughout Psych mental status grossly normal MDM MDM MDM Narrative Medical decision making narrative: The nailbed was cleaned. The bleeding was stopped with silver nitrate cautery. Patient tolerated procedure well. Adaptic dressing was applied. Patient was instructed to keep the wound clean and dry. Patient was instructed to follow-up with his manager environmental services as scheduled. Patient understood and was agreeable with the plan. All questions were answered. Discharge Plan Triage Chief Complaint: Wound Check Other Complaint: Lower Extremity Injury ED Provider: Baltazar Hollins Dx/Rx/DC Orders Clinical Impression: Post-operative hemorrhage Instructions: ED Post Op Wound Check, Bleeding Prescriptions: No Action fluoxetine 20 mg capsule 20 mg PO DAILY Qty: 90 RF: 0 losartan 100 mg tablet 100 mg PO DAILY Qty: 90 RF: 0 olanzapine 5 mg tablet 5 mg PO QHS Qty: 90 RF: 0 pravastatin 40 mg tablet 40 mg PO QHS Qty: 90 RF: 0 cholecalciferol (vitamin D3) 1,000 unit capsule 1,000 unit PO DAILY RF: 0 aspirin [Adult Low Dose Aspirin] 81 mg tablet,delayed release (DR/EC) 81 mg PO DAILY RF: 0 omeprazole 40 mg capsule,delayed release(DR/EC) 40 mg PO DAILY RF: 0 (DME) blood-glucose meter [True Metrix Glucose Meter] Misc See Rx Instructions .ROUTE .MEDSUPPLY Qty: 1 RF: 0 spironolactone 50 mg tablet 50 mg PO DAILY Qty: 90 RF: 3 Humulin R U-500 (Conc) Insulin 500 unit/mL Solution 70 unit continuous subcutaneous infusion 1200 RF: 0 Humulin R U-500 (Conc) Insulin 500 unit/mL Solution 125 unit SUBCUT QHS RF: 0 Humulin R U-500 (Conc) Kwikpen 500 unit/mL (3 mL) insulin pen 105 unit SC DAILY RF: 0 (DME) True Metrix Glucose Test Strip Strip See Rx Instructions .ROUTE .MEDSUPPLY Qty: 400 RF: 3 Primary Care Provider: Marcell Rodriguez Referrals: Omar Ortiz DPM [STAFF PHYSICIAN] - Keep Tom appointment Marcell Rodriguez MD [Primary Care Provider] - Keep [facility] appointment Disposition Disposition: Home, Self Care
[2021-11-18] MEDS: Silver Nitrate (BKC) 1 EACH TOPICAL (16:00)
[2021-11-18 16:20] VITALS: PULSE 88; RESP 17; O2SAT 97
== END 2021-11-18 16:22 | disposition home or self-care (01) ==
PROVIDERS: Emergency Provider Emergency Medicine; PCP Family Medicine; Visit Provider Emergency Medicine
DX: L76.21 Postprocedural hemorrhage of skin and subcutaneous tissue following a dermatologic procedure (principal); E11.9 Type 2 diabetes mellitus without complications; Z79.4 Long term (current) use of insulin; E78.00 Pure hypercholesterolemia, unspecified; E78.5 Hyperlipidemia, unspecified; I10 Essential (primary) hypertension; F32.A Depression, unspecified; K21.9 Gastro-esophageal reflux disease without esophagitis; G47.30 Sleep apnea, unspecified; Z79.82 Long term (current) use of aspirin; Z79.899 Other long term (current) drug therapy
CPT/HCPCS: 99283

== ENCOUNTER 2022-06-02 08:00 | Day surgery (SDC) | payer MEDICARE, SELFPAY ==
[2022-06-02] VITALS (8 sets, daily range): BP systolic 113–145; BP diastolic 54–93; PULSE 66–84; RESP 16; TEMP 36.1–36.6; O2SAT 92–100; BMI 32.8
--- NOTE | 2022-06-02 | GASB_PTH ---
PATIENT: NEPTALI GREENE LOC: EN U#:[id number] AGE/SX: 61/M ROOM: RE06/02/[address]: Dr. Alberto Borges MD : 1960 BED: DIS: 06/02/2022 SPEC #: [id number] RECD: 06/02/22 13:39 STATUS: MAURIZIO RENicole #: [id number] ANGEL: 06/02/22 00:[address]: Alberto Borges DEPT: SURGICAL PATHOLOGY RECD BY: Rogerio Manuel ENTERED: 06/02/22 13:40 SP TYPE: Gastric Bx OTHR DR: Dr. Marcell Rodriguez MD Tissues: A - Duodenum, NOS B - Gastric mucous membrane C - Gastric mucous membrane D - Esophageal mucous membrane Procedures: Surgery Specimen Level IV HEADER OPERATION: Colonoscopy, EGD ([facility]) PRE-OP DIAGNOSIS: GERD, abdominal pain TISSUE SUBMITTED: A ? Duodenum biopsy, B ? Antrum biopsy for histo and H. pylori, C ? Polyp of cardia biopsy, D ? Distal esophagus biopsy MICROSCOPIC DIAGNOSIS A. Duodenum, biopsy: A fragment of duodenal mucosa, no pathologic diagnosis. B. Antrum, biopsy: Mild gastritis. See microscopic description and comment. C. Polyp of cardia, biopsy: Hyperplastic cells inflammatory polyp. Additional fragment of gastric mucosa with chronic inflammation. D. Distal esophagus, biopsy: A fragment of squamous cell epithelium with chronic inflammation and changes consistent with gastroesophageal reflux disease. SJ:jennifer 06/05/2022 COMMENT B. The results of immunohistochemistry for Helicobacter pylori will be reported separately ([id number]). MICROSCOPIC DESCRIPTION Slides are reviewed. B. The specimen shows fragments of gastric mucosa with chronic inflammatory cell infiltrates in the lamina propria consisting of lymphocytes and plasma cells, consistent with mild chronic gastritis. GROSS DESCRIPTION A - Received in fixative is one container labeled with the patient's name and designated duodenal biopsy. The specimen consists of one irregular fragment of light davidson soft tissue that measures 0.5 x 0.3 x 0.1 cm. The specimen is totally submitted in one cassette. B - Received in fixative is one container labeled with the patient's name and designated antrum biopsy. The specimen consists of one irregular fragment of light davidson soft tissue that measures 0.3 x 0.3 x 0.1 cm. The specimen is totally submitted in one cassette. C - Received in fixative is one container labeled with the patient's name and designated polyp of cardia. The specimen consists of multiple irregular fragments of light davidson soft tissue that in aggregate measure 1.5 x 1.2 x 0.3 cm. The specimen is totally submitted in one cassette. D - Received in fixative is one container labeled with the patient's name and designated distal esophagus biopsy. The specimen consists of one irregular fragment of light davidson soft tissue that measures 0.3 x 0.3 x 0.1 cm. The specimen is totally submitted in one cassette. / AM:jennifer 06/02/2022 TC:3 CPT: 41111 x4
--- NOTE | 2022-06-02 08:26 | PCM.HP.BLA ---
History and Physical Date of Admission: 06/02/22 [place] Hand Required: No Is patient in pain?: No Allergies lisinopril Allergy (Intermediate, Verified 04/25/22 14:57) Hivesmetformin Allergy (Intermediate, Verified 04/25/22 14:57) Effects Kidneys Medications aspirin 81 mg tablet,delayed release (Adult Low Dose Aspirin) 81 mg PO DAILY 06/02/19 [History Confirmed 04/25/22] cholecalciferol (vitamin D3) 25 mcg (1,000 unit) capsule 1,000 unit PO DAILY 06/02/19 [History Confirmed 04/25/22] fluoxetine 20 mg capsule 20 mg PO DAILY #90 caps 06/02/19 [History Confirmed 04/25/22] losartan 100 mg tablet 100 mg PO DAILY #90 tabs 06/02/19 [History Confirmed 04/25/22] olanzapine 5 mg tablet 5 mg PO QHS #90 tabs 06/02/19 [History Confirmed 04/25/22] pravastatin 40 mg tablet 40 mg PO QHS #90 tabs 06/02/19 [History Confirmed 04/25/22] omeprazole 40 mg capsule,delayed release 40 mg PO DAILY 02/04/21 [History Confirmed 04/25/22] spironolactone 50 mg tablet 50 mg PO DAILY #90 tabs 10/06/21 [Rx Confirmed 04/25/22] blood sugar diagnostic (VayyarTouch Ultra Test strips) #100 ea 02/07/22 [Rx Confirmed 04/25/22] lancets 33 gauge (OneTouch Delica Lancets) #100 ea 02/07/22 [Rx Confirmed 04/25/22] insulin regular hum U-500 conc 500 unit/mL(3 mL) subcut pen (Humulin R U-500 (Conc) Insulin Kwikpen) See Rx Instructions subcut .TIDCM #18 mL 03/29/22 [Rx Confirmed 04/25/22] semaglutide 0.25 mg or 0.5 mg (2 mg/1.5 mL) subcutaneous pen injector (Ozempic) 0.5 mg (0.4 mL) subcut QWEEK #4.5 mL 03/31/22 [Rx Confirmed 04/25/22] pen needle, diabetic 32 gauge x 5/32 (BD Ultra-Fine Ester Pen Needle) #100 ea 04/05/22 [Rx Confirmed 04/25/22] PFSH Medical History? Back pain Blood in stool Constipation CPAP (continuous positive airway pressure) dependence Depression Diabetes mellitus Diabetic retinopathy associated with type 2 diabetes mellitus Dietary restriction Fatigue GERD (gastroesophageal reflux disease) High cholesterol Hx of fracture of lower leg Hyperlipidemia Hypertension Hypogonadism in male Insulin dependent diabetes mellitus Non-smoker Sleep apnea Surgical History? History of esophagogastroduodenoscopy (EGD) Hx of bilateral cataract extraction Hx of colonoscopy Hx of umbilical hernia repair Hx of vasectomy Status post surgical removal of nail matrix of toe Family History? Mother CVA (cerebral vascular accident)Father HypertensionBrother Myocardial infarction Heart disease Social History? Smoking Status:? Never smoker second hand exposure:? No alcohol intake:? current alcohol intake frequency: holidays/special occasions only substance use type:? does not use caffeine:? Yes what type of physical activity do you participate in:? none frequency:? does not exercise HPI HPI HPI: NEPTALI GREENE, is a 61 M who presents to the office today for surgical consultation regarding gastroesophageal reflux disease.? The patient is referred by Justin Miranda PA-C and a written copy of my surgical consult recommendations will return to him.? Among the patient's other medications he is on omeprazole 40 mg daily.? He is a type II diabetic but insulin-dependent.? He is also on low-dose aspirin therapy.? His BMI is elevated at 33.8. The patient and ascribes most to his symptoms to being on Trulicity and Ozempic.? Complaints of nausea and epigastric discomfort and the requirement for taking multiple Tums and Pepto-Bismol however is a prime concern.? Patient may have had an upper endoscopy 12 years ago.? He is taking omeprazole 40 mg daily with some improvement but incomplete resolution.? He has not had any weight loss.? Colonoscopy is listed as 2012.? Complaining of cramps and gas and abdominal discomfort.? Symptoms are difficult to localize.? No fever or chills. ROS General General: Yes fatigue; No weight change, appetite, colon cancer, breast cancer or weakness HEENT HEENT: Yes eye surgery; No difficulty swallowing, eye injury, swollen glands or hoarseness Endo Endocrine: Yes diabetes mellitus; No thyroid disease, thyroid cancer, Hair loss, heat intolerance or cold intolerance Skin Skin: No rash or changing moles Breast Breast: No left breast lump, right breast lump, nipple discharge, breast pain, abnormal mammogram, abnormal US or breast enlargement Musc Musculoskeletal: Yes back problems and arthritis; No rheumatoid arthritis, gout or joint pain Cardio Cardiovascular: Yes high blood pressure; No murmur, pacemaker, heart disease, atrial fibrillation, heart attack, heart stent, palpitations, shortness of breat with exertion or chest pain Psych Psychiatric: No depression, anxiety or hearing voices Resp Respiratory: No shortness of breath, No sleep apnea, No cough, No COPD, No asthma, No emphysema and No wheezing Gastro Gastrointestinal: No abdominal pain, No nausea or vomiting, No diarrhea, No constipation, No blood in stool, Yes acid reflux, No hemorrhoids, No ulcers, No gallbladder problem and No black,tarry stools Bunny Hematologic: No blood thinners, No blood disorders, No bleeding, No anemia and No blood clots Neuro Neurologic: No system reviewed and no additional complaints, except as documented, No as per HPI, No abnormal gait, No abnormal hearing, No abnormal movements, No abnormal speech, No behavioral changes, No burning sensations, No confusion, No convulsions, No disequilibrium, No dizziness, No localized weakness, No frequent falls, No headache(s), No lack of coordination, No loss of vision, No memory loss, No numbness, No other visual disturbances, No radicular pain, No restless legs, No sensory deficit, No syncope, No tingling, No tremor(s), No weakness and No other Exam Const General: cooperative, healthy appearing, comfortable and no acute distress [facility] Head: normal to inspection Eyes General: appearance normal, both eyes and all related structures Resp Effort & Inspection: normal respiratory effort Auscultation: clear to auscultation bilaterally Cardio Rate: regular rate Rhythm: regular rhythm GI Inspection: normal to inspection Palpation: soft and no hepatosplenomegaly Skin General: no rashes or lesions noted Neuro General: patient alert, patient awake and patient oriented x3 Extrem General: no calf tenderness Psych Appearance: grossly normal Assessment and Plan Assessment and Plan (1) GERD (gastroesophageal reflux disease): ?Status:?Acute ?Comment: CONTROLLED ON MED ?Plan: Copy: ANASTASIA Simmons M.D., F.A.C.S. (2) Abdominal pain: ?Status:?Acute Plan Discal decipher etiology of the patient's complaint of abdominal discomfort and nausea and need to take Pepto-Bismol and antacids without relief.? Etiology not clear.? I do concur with recommendations to proceed with a esophagogastroduodenoscopy.? Symptoms are nonspecific enough that I am also recommending that we pursue a colonoscopy with possible biopsy or polypectomy.? He is aware of technique, benefit, risk, alternatives.? At this point he does not appear to have acute surgical abdomen.? His symptoms are just unrelenting and he and his continue to relate his symptoms to the previous diabetic medications.? They are concerned however that the symptoms persist even though the medication is ceased. We will schedule and proceed at his discretion.? He is aware that I will be out of town and we will schedule him for soon as possible upon my return. I appreciate the opportunity of assisting with the surgical care Copy: ANASTASIA Simmons M.D., F.A.C.S. I have re-examined the patient. There are no clinical changes since date of exam. Alberto Borges M.D., F.A.C.S.
[2022-06-02] MEDS: Lactated Ringers 1,000 ML 15 ML IV (08:30)
--- NOTE | 2022-06-02 09:00 | IMM_PTH ---
PATIENT: NEPTALI GREENE LOC: EN U#:[id number] AGE/SX: 61/M ROOM: RE06/02/[address]: Dr. Alberto Borges MD : 1960 BED: DIS: 06/02/2022 SPEC #: [id number] RECD: 06/02/22 14:04 STATUS: MAURIZIO REQ #: [id number] ANGEL: 06/02/22 09:[address]: Alberto Borges DEPT: IMMUNOHISTOCHEMISTRY RECD BY: Angela Jacinto ENTERED: 06/02/22 14:05 SP TYPE: IMMUNO OTHR DR: Dr. Marcell Rodriguez MD Tissues: B - Stomach, NOS Procedures: H Pylori (initial) PHYSICIAN & INSTITUTION [facility] [id number] SPECIMEN INFORMATION: Tissue Source: B ? Antrum biopsy Clinical Info: GERD, abdominal pain Specimen Number: [id number] CPT code: 75031 METHODOLOGY: Deparaffinized sections of prefer/formalin-fixed tissue or PAP/DQ stained slides are incubated with monoclonal/polyclonal antibodies/oligonucleotide probes. Localization is made via biotin free immunoperoxidase method. Appropriate controls are performed and reacted as expected. Results on target cell population are indicated in the following table: RESULTS: ANTIBODY / CLONE RESULT Block B H Pylori (polyclonal) negative These tests were developed and their performance characteristics determined by [facility]. They may not have been cleared or approved by the U.[place]. Food and Drug Administration. The FDA has determined that such clearance or approval is not necessary. The above immunohistochemical/dualISH markers are ordered and reviewed by the Pathologist. INTERPRETATION: B. Antrum, biopsy: Negative for Helicobacter pylori organisms. SJ:jennifer 06/05/2022
--- NOTE | 2022-06-02 09:54 | OP.EGD_ITS ---
Patient Name: Chao Mancini Procedure Date: 06/02/2022 9:14 AM Date of : 1960 Age: 61 Procedure: Upper GI endoscopy Indications: Generalized abdominal pain Providers: lAberto Borges MD Referring MD: Alberto Borges MD Medicines: General Anesthesia, See the Anesthesia note for documentation of the administered medications Complications: No immediate complications. Procedure: Pre-Anesthesia Assessment: - Prior to the procedure, a History and Physical was performed, and patient medications and allergies were reviewed. The patient's tolerance of previous anesthesia was also reviewed. The risks and benefits of the procedure and the sedation options and risks were discussed with the patient. All questions were answered, and informed consent was obtained. Prior Anticoagulants: The patient has taken no previous anticoagulant or antiplatelet agents. ASA Grade Assessment: II - A patient with mild systemic disease. After reviewing the risks and benefits, the patient was deemed in satisfactory condition to undergo the procedure. After obtaining informed consent, the endoscope was passed under direct vision. Throughout the procedure, the patient's blood pressure, pulse, and oxygen saturations were monitored continuously. The pediatric colonoscope was introduced through the mouth, and advanced to the second part of duodenum. The upper GI endoscopy was accomplished without difficulty. The patient tolerated the procedure well. Scope In: 9:25:34 AM Scope Out: 9:37:02 AM Total Procedure Duration Time 0 hours 11 minutes 28 seconds Findings: The Z-line was regular and was found 42 cm from the incisors. Biopsies were taken with a cold forceps for histology. A small hiatal hernia was present. Diffuse mildly erythematous mucosa without bleeding was found in the gastric antrum. Biopsies were taken with a cold forceps for histology. Three 8 mm sessile polyps with no bleeding and no stigmata of recent bleeding were found in the cardia. The polyp was removed with a hot snare. Resection and retrieval were complete. The examined duodenum was normal. Biopsies were taken with a cold forceps for histology. Impression: - Z-line regular, 42 cm from the incisors. Biopsied. - Small hiatal hernia. - Erythematous mucosa in the antrum. Biopsied. - Three gastric polyps. Resected and retrieved. - Normal examined duodenum. Biopsied. Recommendation: - Discharge patient to home. - Resume previous diet. - Continue present medications. - Telephone my office for pathology results in 1 week. Procedure Code(s): --- Professional --- 03630, Esophagogastroduodenoscopy, flexible, transoral; with removal of tumor(s), polyp(s), or other lesion(s) by snare technique Diagnosis Code(s): --- Professional --- K44.9, Diaphragmatic hernia without obstruction or gangrene K31.89, Other diseases of stomach and duodenum K31.7, Polyp of stomach and duodenum R10.84, Generalized abdominal pain CPT copyright 2017 [employer]. All rights reserved. The codes documented in this report are preliminary and upon seamstress fitter review may be revised to meet current compliance requirements. Alberto Borges MD 06/02/2022 9:54:18 AM This report has been signed electronically. Number of Addenda: 0 Note Initiated On: 06/02/2022 9:14 AM
--- NOTE | 2022-06-02 09:55 | OP.CCLET_ITS ---
06/02/2022 Marcell Rodriguez Re : Upper GI endoscopy procedure for Chao Mancini Dear Jennifer This procedure was performed on Thursday, June 02, 2022. My impressions and recommendations are as follows: Impressions : - Z-line regular, 42 cm from the incisors. Biopsied. - Small hiatal hernia. - Erythematous mucosa in the antrum. Biopsied. - Three gastric polyps. Resected and retrieved. - Normal examined duodenum. Biopsied. Recommendations : - Discharge patient to home. - Resume previous diet. - Continue present medications. - Telephone my office for pathology results in 1 week. My findings are described in the full procedure note, which is enclosed. If I can be of further assistance, please feel free to contact me at Doctor phone number(s): Work: . Sincerely, Alberto Borges MD 06/02/2022 9:54:18 AM This report has been signed electronically.
--- NOTE | 2022-06-02 09:57 | OP.CCLET_ITS ---
06/02/2022 Marcell Rodriguez Re : Colonoscopy procedure for Chao Mancini Dear Jennifer This procedure was performed on Thursday, June 02, 2022. My impressions and recommendations are as follows: Impressions : - Non-thrombosed external hemorrhoids, non-thrombosed internal hemorrhoids, internal hemorrhoids that prolapse with straining, but spontaneously regress to the resting position (Grade II) and enlarged prostate found on digital rectal exam. - Diverticulosis in the entire examined colon. - No specimens collected. Recommendations : - Discharge patient to home. - Resume previous diet. - Continue present medications. - Repeat colonoscopy in 10 years for screening purposes. My findings are described in the full procedure note, which is enclosed. If I can be of further assistance, please feel free to contact me at Doctor phone number(s): Work: . Sincerely, Alberto Borges MD 06/02/2022 9:56:52 AM This report has been signed electronically.
--- NOTE | 2022-06-02 09:57 | OP.COLON_ITS ---
Patient Name: Chao Mancini Procedure Date: 06/02/2022 9:37 AM Date of : 1960 Age: 61 Procedure: Colonoscopy Indications: Generalized abdominal pain Providers: Alberto Borges MD Referring MD: Alberto Borges MD Medicines: See the Anesthesia note for documentation of the administered medications Patient Profile: Last Colonoscopy: 2012. Complications: No immediate complications. Procedure: Pre-Anesthesia Assessment: - Prior to the procedure, a History and Physical was performed, and patient medications and allergies were reviewed. The patient's tolerance of previous anesthesia was also reviewed. The risks and benefits of the procedure and the sedation options and risks were discussed with the patient. All questions were answered, and informed consent was obtained. Prior Anticoagulants: The patient has taken no previous anticoagulant or antiplatelet agents. ASA Grade Assessment: II - A patient with mild systemic disease. After reviewing the risks and benefits, the patient was deemed in satisfactory condition to undergo the procedure. After I obtained informed consent, the scope was passed under direct vision. Throughout the procedure, the patient's blood pressure, pulse, and oxygen saturations were monitored continuously. The pediatric colonoscope was introduced through the anus and advanced to the cecum, identified by appendiceal orifice and ileocecal valve. The colonoscopy was performed without difficulty. The patient tolerated the procedure well. The quality of the bowel preparation was good. The ileocecal valve and the appendiceal orifice were photographed. Scope In: 9:39:21 AM Scope Withdrawal Time 0 hours 6 minutes 58 seconds Scope Out: 9:48:59 AM Total Procedure Duration Time 0 hours 9 minutes 38 seconds Findings: The digital rectal exam findings include non-thrombosed external hemorrhoids, non-thrombosed internal hemorrhoids, internal hemorrhoids that prolapse with straining, but spontaneously regress to the resting position (Grade II) and enlarged prostate. Multiple diverticula were found in the entire colon. Impression: - Non-thrombosed external hemorrhoids, non-thrombosed internal hemorrhoids, internal hemorrhoids that prolapse with straining, but spontaneously regress to the resting position (Grade II) and enlarged prostate found on digital rectal exam. - Diverticulosis in the entire examined colon. - No specimens collected. Recommendation: - Discharge patient to home. - Resume previous diet. - Continue present medications. - Repeat colonoscopy in 10 years for screening purposes. Procedure Code(s): --- Professional --- 00179, Colonoscopy, flexible; diagnostic, including collection of specimen(s) by brushing or washing, when performed (separate procedure) Diagnosis Code(s): --- Professional --- K64.1, Second degree hemorrhoids K64.4, Residual hemorrhoidal skin tags R10.84, Generalized abdominal pain N40.0, Benign prostatic hyperplasia without lower urinary tract symptoms K57.30, Diverticulosis of large intestine without perforation or abscess without bleeding CPT copyright 2017 [employer]. All rights reserved. The codes documented in this report are preliminary and upon induction machine operator review may be revised to meet current compliance requirements. Alberto Borges MD 06/02/2022 9:56:52 AM This report has been signed electronically. Number of Addenda: 0 Note Initiated On: 06/02/2022 9:37 AM
[2022-06-02 10:26] LABS: Bedside Glucose 114 mg/dL (74-106)
== END 2022-06-02 10:45 | disposition home or self-care (01) ==
LOC: EN 08:00 → AC 08:02
PROVIDERS: PCP Family Medicine; Referring Provider Surgery; Visit Provider Surgery
PROC: 0DJD8ZZ Inspection of Lower Intestinal Tract, Via Natural or Artificial Opening Endoscopic (ICD-10-PCS; CPT 45378; principal; 2022-06-02 08:55)
DX: K31.7 Polyp of stomach and duodenum (principal); E11.319 Type 2 diabetes mellitus with unspecified diabetic retinopathy without macular edema; Z79.4 Long term (current) use of insulin; K64.8 Other hemorrhoids; K64.4 Residual hemorrhoidal skin tags; K44.9 Diaphragmatic hernia without obstruction or gangrene; K57.30 Diverticulosis of large intestine without perforation or abscess without bleeding; K64.1 Second degree hemorrhoids; K31.89 Other diseases of stomach and duodenum; N40.0 Benign prostatic hyperplasia without lower urinary tract symptoms; K21.9 Gastro-esophageal reflux disease without esophagitis; E78.5 Hyperlipidemia, unspecified; I10 Essential (primary) hypertension; E29.1 Testicular hypofunction; F32.A Depression, unspecified; E66.9 Obesity, unspecified; G47.30 Sleep apnea, unspecified; Z68.32 Body mass index [BMI] 32.0-32.9, adult
CPT/HCPCS: 45378; 43251; 82962; 88305; 88342; J7120; J2405

== ENCOUNTER 2023-04-25 03:58 | Emergency (ER) | payer MEDICARE, SELFPAY ==
[2023-04-25 04:01] VITALS: BP 132/79; PULSE 57; RESP 18; TEMP 36.8; O2SAT 97; BMI 32.2
[2023-04-25] MEDS: Dextrose 50%-Water 25 GM/50 ML DISP.SYRIN IV ×2 (04:08→06:00)
--- NOTE | 2023-04-25 04:11 | CT_ITS ---
EXAM: CT brain without contrast HISTORY: Head trauma TECHNIQUE: No intravenous contrast. A radiation dose optimization technique was used for this scan. COMPARISON: None. LIMITATIONS: None. BRAIN: Normal garcia/white matter differentiation. VENTRICLES: No hydrocephalus. EXTRA-AXIAL SPACES: No acute hemorrhage. CALVARIUM/SKULL BASE: No acute fracture. FACE/SINUSES: No significant abnormality. SOFT TISSUES: Normal. OTHER: None. CONCLUSION: No acute intracranial abnormality. Electronically Signed: Adolfo Roland MD at 4:44 EDT , CT/Brain/Head without Contrast IMPRESSION: undefined
--- NOTE | 2023-04-25 04:12 | RAD_ITS ---
INDICATION: Injury/Pain EXAMINATION/TECHNIQUE: X-RAY - RIGHT XR Elbow Min 3 Views COMPARISON: None. FINDINGS: 3 views of the right elbow were obtained. No gross fat pad elevation. No acute fracture is identified. No dislocation. RAD/Elbow min 3 Views IMPRESSION: No acute fracture identified. Electronically Signed: Adolfo Roland MD at 4:49 EDT ,
--- NOTE | 2023-04-25 04:14 | EX.ED.DYSGE1 ---
HPI History of Present Illness Chief Complaint: Dizziness Informant: patient and spouse/S.O. Onset/Context/Timing Onset: Today Context: Sudden Onset Timing: Continuous Quality: Lightheaded Location: Generalized Worsened by: Nothing Relieved by: Nothing Narrative Narrative: Patient presents with dizziness that began today. Patient woke up and felt lightheaded. Patient states nothing makes it better and nothing makes it worse. Patient apparently fell and hit his head when he got up. Patient also complains of mild pain in his right elbow. Patient states he just does not feel right. Patient denies any headaches. Patient denies any nausea or vomiting. Patient denies any fevers or chills. [facility] Medical History Back pain Blood in stool Constipation CPAP (continuous positive airway pressure) dependence Depression Diabetes mellitus Diabetic retinopathy associated with type 2 diabetes mellitus Dietary restriction Fatigue GERD (gastroesophageal reflux disease) High cholesterol Hx of fracture of lower leg Hx of ingrown nail Hyperlipidemia Hypertension Insulin dependent diabetes mellitus Non-smoker Sleep apnea Home Medications aspirin 81 mg tablet,delayed release (Adult Low Dose Aspirin) 81 mg PO DAILY 06/02/19 [History Last Taken 05/30/22] losartan 100 mg tablet 100 mg PO DAILY #90 tabs 06/02/19 [History Last Taken 06/02/22 07:00] pravastatin 40 mg tablet 40 mg PO QHS #90 tabs 06/02/19 [History Last Taken Unknown] omeprazole 40 mg capsule,delayed release 40 mg PO DAILY 02/04/21 [History Last Taken 06/02/22 07:00] spironolactone 50 mg tablet 50 mg PO DAILY #90 tabs 10/06/21 [Rx Last Taken Unknown] fluoxetine 20 mg capsule 40 mg PO DAILY #90 caps 10/10/22 [History Last Taken Unknown] blood sugar diagnostic (OneTouch Ultra Test strips) #100 ea 03/21/23 [Rx Last Taken Unknown] lancets 33 gauge #100 ea 03/21/23 [Rx Last Taken Unknown] pen needle, diabetic 32 gauge x 5/32 (BD Ultra-Fine Ester Pen Needle) #100 ea 03/21/23 [Rx Last Taken Unknown] Humulin R U-500 (Conc) Kwikpen 500 unit/mL (3 mL) subcutaneous (insulin regular hum U-500 conc) See Rx Instructions subcut .TIDCM #69 mL 04/23/23 [Rx Last Taken Unknown] Allergy/AdvReac Type Severity Reaction Status Date / Time lisinopril Allergy Intermediate Hives Verified 04/25/23 04:05 metformin Allergy Intermediate Effects Verified 04/25/23 04:05 Kidneys Family History Mother CVA (cerebral vascular accident) Father Hypertension Brother Myocardial infarction Heart disease Surgical History History of esophagogastroduodenoscopy (EGD) Hx of bilateral cataract extraction Hx of colonoscopy Hx of umbilical hernia repair Hx of vasectomy Status post surgical removal of nail matrix of toe Social History Smoking Status: Never smoker second hand exposure: No alcohol intake: current alcohol intake frequency: holidays/special occasions only substance use type: does not use caffeine: Yes what type of physical activity do you participate in: none frequency: does not exercise ROS ROS ED Constitutional Constitutional ED: Denies chills or fever(s) Eyes Eyes: Denies blurry vision or change in vision ENT ENT ED: Denies rhinorrhea or sore throat Cardiovascular Cardiovascular: Denies chest pain or palpitations Respiratory/Chest Respiratory/Chest: Denies cough or dyspnea Gastrointestinal Gastrointestinal: Denies nausea or vomiting Genitourinary Genitourinary ED: Denies dysuria or hematuria Musculoskeletal Musculoskeletal: Denies back pain or neck pain Integumentary Denies abscess or rash Neurologic Neurologic: Denies headache(s) or weakness Allergic/Immunologic Allergic/Immunologic ED: Denies mouth swelling or urticaria EXAM Physical Exam Const Vital Signs: 04/25/23 04:01 04/25/23 04:03 04/25/23 06:04 Temperature 98.2 F Temperature Source Oral Pulse Rate 57 L 50 L Respiratory Rate 18 25 H Respiratory Pattern Normal Blood Pressure 132/79 H 131/72 H Blood Pressure Mean 96 91 Pulse Ox 97 96 Oxygen Delivery Method Room Air Room Air Positive well nourished, well developed and obese General Appearance ED: well developed and NAD Nutritional Appearance: obese HEENT Reports moist mucous membranes Neck supple and no JVD Resp normal respiratory effort and clear to auscultation bilaterally Cardio regular rate, regular rhythm and no murmurs GI normal to inspection, nondistended, normoactive bowel sounds and non-tender Palpation: soft Extremity normal to inspection Extremity Narrative: There is mild tenderness over the right elbow. There is no deformity noted. There is no edema or ecchymosis. There is no bony crepitance or step-off. There is good range of motion. Radial pulses are equal bilaterally. Sensation is intact to light touch bilaterally in the radial, median, and ulnar areas. Strength is 5/5 in the radial, median, and ulnar areas. General Extremety ED: Yes tenderness; Negative for edema General Extremity: Negative for edema Neuro oriented x3, CN's II-XII intact bilaterally and no sensory deficits noted Sensorium / Orientation: alert Motor Exam: strength 5/5 throughout Psych mental status grossly normal Skin no rashes or lesions noted MDM MDM MDM Narrative Medical decision making narrative: Differential diagnosis includes hypoglycemia, electrolyte abnormality, anemia, urinary tract infection, and closed head injury. CT scan of the brain will be obtained to assess for closed head injury and intracranial bleeding. CBC will be obtained to assess for anemia and leukocytosis. Basic metabolic profile will be obtained to assess for electrolyte abnormality and renal function. Urinalysis will be obtained to assess for urinary tract infection and hematuria. X-rays of the right elbow will be obtained to assess for elbow fracture. Lab Data Attestation: I reviewed the patient's lab results. Lab results narrative: CBC was reviewed. There is mild leukocytosis 14.6. The remainder is within normal limits. Basic metabolic profile was reviewed. Potassium was slightly elevated at 2.7. Glucose was low at 30. Labs: Laboratory Results - last 24 hr 04/25/23 04/25/23 04/25/23 04:02 04:10 04:22 WBC 14.6 H RBC 4.92 Hgb 15.3 Hct 46.0 MCV 93.5 MCH 31.1 MCHC 33.3 RDW Std Deviation 42.6 RDW Coeff of [place] 12.4 Plt Count 289 MPV 10.8 Immature Gran % (Auto) 0.500 Neut % (Auto) 72.8 H Lymph % (Auto) 15.7 L [place] % (Auto) 10.0 Eos % (Auto) 0.5 Baso % (Auto) 0.5 Absolute Neuts (auto) 10.6 H Absolute Lymphs (auto) 2.29 Nucleated RBC % 0 Sodium 140 Potassium 2.7 L* Chloride 107 Carbon Dioxide 25.0 Anion Gap 8 BUN 15 Creatinine 1.04 Estim Creat Clear Calc 74.59 Est GFR (MDRD) Af Amer 93 Est GFR (MDRD) Non-Af 77 BUN/Creatinine Ratio 14.4 Glucose 30 L* Calcium 8.9 POC Glucose 22 L* 121 H 04/25/23 04/25/23 04/25/23 05:01 05:42 06:24 WBC RBC Hgb Hct MCV MCH MCHC RDW Std Deviation RDW Coeff of [place] Plt Count MPV Immature Gran % (Auto) Neut % (Auto) Lymph % (Auto) [place] % (Auto) Eos % (Auto) Baso % (Auto) Absolute Neuts (auto) Absolute Lymphs (auto) Nucleated RBC % Sodium Potassium Chloride Carbon Dioxide Anion Gap BUN Creatinine Estim Creat Clear Calc Est GFR (MDRD) Af Amer Est GFR (MDRD) Non-Af BUN/Creatinine Ratio Glucose Calcium POC Glucose 87 53 L 154 H 04/25/23 06:57 WBC RBC Hgb Hct MCV MCH MCHC RDW Std Deviation RDW Coeff of [place] Plt Count MPV Immature Gran % (Auto) Neut % (Auto) Lymph % (Auto) [place] % (Auto) Eos % (Auto) Baso % (Auto) Absolute Neuts (auto) Absolute Lymphs (auto) Nucleated RBC % Sodium Potassium Chloride Carbon Dioxide Anion Gap BUN Creatinine Estim Creat Clear Calc Est GFR (MDRD) Af Amer Est GFR (MDRD) Non-Af BUN/Creatinine Ratio Glucose Calcium POC Glucose 122 H Radiography Diagnostic Testing: Clinical Impression(s) from Imaging Studies Brain CT 04/25/23 04:11 IMPRESSION: undefined Elbow X-Ray 04/25/23 04:12 IMPRESSION: No acute fracture identified. Electronically Signed: Adolfo Roland MD at 4:49 EDT , CT scan of the brain was obtained. There is no acute intracranial abnormality. This was interpreted by the radiologist and was also independently reviewed by myself. X-rays of the right elbow were obtained. There are 3 views. On my independent interpretation, there is no acute fracture. There is no dislocation. There is no soft tissue swelling. Radiologist also interpreted the x-rays and agrees. Treatment and Re-Evaluation :: Initial BGT was 22. Patient was given 1 amp of D50. Patient's blood sugar improved to 121. Patient was given a diet tray. Patient's blood sugars dropped again to 53. Patient was given another amp of D50. Blood sugar improved to 154. Patient's blood sugar was stable at 122. Patient was advised of his findings. Patient was instructed to hold his morning insulin today. Patient was instructed to contact his loan adviser for adjustments to his insulin. Patient was instructed to follow-up with his primary care physician in 3 to 5 days. Patient understood and was agreeable with the plan. All questions were answered. Discharge Plan Triage Chief Complaint: Dizziness ED Provider: Baltazar Hollins Dx/Rx/DC Orders Clinical Impression: Diabetes mellitus, Hypoglycemia Instructions: ED Diabetic Insulin Reaction Prescriptions: No Action losartan 100 mg tablet 100 mg PO DAILY Qty: 90 pravastatin 40 mg tablet 40 mg PO QHS Qty: 90 aspirin [Adult Low Dose Aspirin] 81 mg tablet,delayed release (DR/EC) 81 mg PO DAILY fluoxetine 20 mg capsule 40 mg PO DAILY Qty: 90 omeprazole 40 mg capsule,delayed release(DR/EC) 40 mg PO DAILY spironolactone 50 mg tablet 50 mg PO DAILY Qty: 90 3RF (DME) OneTouch Ultra Test Strip See Rx Instructions .ROUTE .MEDSUPPLY Qty: 100 12RF Rx Instructions: 3 times daily (DME) lancets 33 gauge misc See Rx Instructions .ROUTE .MEDSUPPLY Qty: 100 11RF Rx Instructions: 3 times a day (DME) pen needle, diabetic [BD Ultra-Fine Ester Pen Needle] 32 gauge x 5/32 needle See Rx Instructions .Route Qty: 100 3RF Rx Instructions: TID Humulin R U-500 (Conc) Kwikpen 500 unit/mL (3 mL) insulin pen See Rx Instructions SC .TIDCM MDD 385 Qty: 69 1RF Rx Instructions: BREAKFAST 135 u LUNCH 135 u SUPPER 115 u subcutaneously Primary Care Provider: Marcell Rodriguez Referrals: Marcell Rodriguez MD [Primary Care Provider] - 3-5 Days Disposition Disposition: Home, Self Care
[2023-04-25 04:20] LABS: Absolute Lymphocyte Count 2.29 X10^3/uL (0.83-4.51); Absolute Neutrophil Count 10.6 X10^3/uL (2.0-7.7); Basophil# 0.07 X10^3/uL; Basophil% 0.5 % (0-1); Eosinophil# 0.07 X10^3/uL; Eosinophils% 0.5 % (0-5); Hemoglobin 15.3 g/dL (13.0-16.5); Lymphocyte # 2.29 X10^3/ul (0.83-4.51); Lymphocyte % 15.7 % (19-41); Mean Corp Hgb Conc 33.3 g/dL (32-36); Mean Corpuscular Hgb 31.1 pg (27.0-32.0); Mean Corpuscular Volume 93.5 fL (80-94); Mean Platelet Vol. 10.8 fl (6.2-12.0); Monocyte# 1.46 X10^3/uL; NRBC Flagged by Analyzer 0 % (0-5); Neutrophil % 72.8 % (47-70); Platelet Count 289 K/mm3 (150-450); RBC Distribution Width CV 12.4 % (11.6-14.6); RBC Distribution Width SD 42.6 fl (35.1-43.9); Red Blood Count 4.92 M/mm3 (4.6-6.2); White Blood Count 14.6 K/mm3 (4.4-11.0)
[2023-04-25 04:24] LABS: Bedside Glucose 22 mg/dL (74-106)
[2023-04-25 04:41] LABS: Anion Gap 8 (5-15); BUN 15 mg/dL (7-18); BUN/Creat Ratio 14.4 RATIO (10-20); Calcium,Total 8.9 mg/dL (8.5-10.1); Chloride 107 mmol/L (98-107); Creatinine, Serum 1.04 mg/dL (0.70-1.30); EST Glomerular Filtration Rate 77 mL/min (>60); Est Glom Filt Rate - Afr Amer 93 mL/min (>60); Estimated Creatinine Clearance 74.59 ml/min; Glucose 30 mg/dL (74-106); Potassium 2.7 mmol/L (3.5-5.1); Sodium Level 140 mmol/L (136-145)
[2023-04-25 04:42] LABS: Bedside Glucose 121 mg/dL (74-106)
[2023-04-25 05:19] LABS: Bedside Glucose 87 mg/dL (74-106)
[2023-04-25] MEDS: Potassium Chloride Oral Tablet 20 MEQ 40 MEQ PO (05:36)
[2023-04-25 06:01] LABS: Bedside Glucose 53 mg/dL (74-106)
[2023-04-25 06:04] VITALS: BP 131/72; PULSE 50; RESP 25; O2SAT 96
[2023-04-25 06:42] LABS: Bedside Glucose 154 mg/dL (74-106)
[2023-04-25 07:07] LABS: Bacteria 0 SEEN /hpf (None Seen); Mucous, Urine 0 SEEN /hpf (<or=2+); Red Blood Cells-Urine 0 SEEN /hpf (0-5); Squamous Epithelial Cells - UA 0 SEEN /hpf (0-5); White Blood Cells 0 SEEN /hpf (0-5)
[2023-04-25 07:14] LABS: Bedside Glucose 122 mg/dL (74-106)
[2023-04-25 07:27] LABS: Color, Urine Yellow (Yellow); Glucose, Dipstick 250 mg/dl (Normal); Ketone-Dipstick Negative (Negative); Leukocyte Esterase-Dipstick Negative /ul (Negative); Nitrite-Dipstick Negative (Negative); Occult Blood-Urine Negative /ul (Negative); Protein-Dipstick 15 mg/dl (Negative); Specific Gravity, Urine 1.015 (1.002-1.030); Urine Bilirubin Dipstick Negative (Negative); Urine Clarity Clear (Clear); Urine Urobilinogen Normal (Normal)
[2023-04-25 07:46] VITALS: BP 127/93; PULSE 74; RESP 16; O2SAT 99
[2023-04-25 08:00] LABS: Bedside Glucose 113 mg/dL (74-106)
== END 2023-04-25 07:47 | disposition home or self-care (01) ==
PROVIDERS: Emergency Provider Emergency Medicine; PCP Family Medicine; Visit Provider Emergency Medicine
DX: R42 Dizziness and giddiness (principal); E11.649 Type 2 diabetes mellitus with hypoglycemia without coma; E11.319 Type 2 diabetes mellitus with unspecified diabetic retinopathy without macular edema; Z79.4 Long term (current) use of insulin; I10 Essential (primary) hypertension; E78.00 Pure hypercholesterolemia, unspecified; Z99.89 Dependence on other enabling machines and devices; Z79.82 Long term (current) use of aspirin; Z79.899 Other long term (current) drug therapy; K21.9 Gastro-esophageal reflux disease without esophagitis; F32.A Depression, unspecified; Z98.52 Vasectomy status
CPT/HCPCS: 70450; 73080; 80048; 81001; 82962; 85025; 96374; 96375; 99284; A4216

== ENCOUNTER 2023-06-15 22:40 | Emergency (ER) | payer MEDICARE, SELFPAY ==
[2023-06-15 22:41] VITALS: BP 119/73; PULSE 68; RESP 16; TEMP 36.4; O2SAT 99; BMI 33.1
[2023-06-15 23:11] LABS: Bedside Glucose 67 mg/dL (74-106)
[2023-06-16 00:41] VITALS: RESP 18
--- NOTE | 2023-06-16 00:42 | EX.ED.DYSGE1 ---
HPI History of Present Illness Chief Complaint: Hypoglycemia Informant: patient and spouse/S.O. Narrative Narrative: Patient is a 62-year-old male with past medical history of insulin-dependent diabetes as well as hypertension. He states that he takes Humulin R 3 times a day secondary to his diabetes. He does report that his dose was just recently increased. He states that he typically eats breakfast and dinner but does not eat lunch. He states that today he did his normal routine of eating breakfast skipping lunch and then eating dinner. He states that he then checked his sugar and it was low in the 60s and he has been in a hypoglycemic coma with a blood sugar of 20 before and this concerned him so he comes in for evaluation. Patient states he has not been sick in any way and he denies overdosing or taking his insulin medication in a noncompliant fashion [facility] Medical History Back pain Blood in stool Constipation CPAP (continuous positive airway pressure) dependence Depression Diabetes mellitus Diabetic retinopathy associated with type 2 diabetes mellitus Dietary restriction Fatigue GERD (gastroesophageal reflux disease) High cholesterol Hx of fracture of lower leg Hx of ingrown nail Hyperlipidemia Hypertension Insulin dependent diabetes mellitus Non-smoker Sleep apnea Home Medications aspirin 81 mg tablet,delayed release (Adult Low Dose Aspirin) 81 mg PO DAILY 06/02/19 [History Last Taken 05/30/22] losartan 100 mg tablet 100 mg PO DAILY #90 tabs 06/02/19 [History Last Taken 06/02/22 07:00] pravastatin 40 mg tablet 40 mg PO QHS #90 tabs 06/02/19 [History Last Taken Unknown] omeprazole 40 mg capsule,delayed release 40 mg PO DAILY 02/04/21 [History Last Taken 06/02/22 07:00] spironolactone 50 mg tablet 50 mg PO DAILY #90 tabs 10/06/21 [Rx Last Taken Unknown] blood sugar diagnostic (OneTouch Ultra Test strips) #100 ea 03/21/23 [Rx Last Taken Unknown] lancets 33 gauge #100 ea 03/21/23 [Rx Last Taken Unknown] pen needle, diabetic 32 gauge x 5/32 (BD Ultra-Fine Ester Pen Needle) #100 ea 03/21/23 [Rx Last Taken Unknown] Humulin R U-500 (Conc) Kwikpen 500 unit/mL (3 mL) subcutaneous (insulin regular hum U-500 conc) See Rx Instructions subcut .TIDCM #69 mL 04/26/23 [Rx Last Taken Unknown] flash glucose scanning reader (ClipMineStyle Richard 2 [place]) #1 ea 04/26/23 [Rx Last Taken Unknown] flash glucose sensor (FreeStyle Richard 2 Sensor kit) #2 ea 04/26/23 [Rx Last Taken Unknown] Allergy/AdvReac Type Severity Reaction Status Date / Time lisinopril Allergy Intermediate Hives Verified 06/15/23 22:41 metformin Allergy Intermediate Effects Verified 06/15/23 22:41 Kidneys Family History Mother CVA (cerebral vascular accident) Father Hypertension Brother Myocardial infarction Heart disease Surgical History History of esophagogastroduodenoscopy (EGD) Hx of bilateral cataract extraction Hx of colonoscopy Hx of umbilical hernia repair Hx of vasectomy Status post surgical removal of nail matrix of toe Social History Smoking Status: Never smoker second hand exposure: No alcohol intake: current alcohol intake frequency: holidays/special occasions only substance use type: does not use caffeine: Yes what type of physical activity do you participate in: none frequency: does not exercise ROS ROS ED Constitutional Constitutional ED: Denies chills or fever(s) Eyes Eyes: Denies change in vision ENT ENT ED: Denies sore throat Cardiovascular Cardiovascular: Denies chest pain Respiratory/Chest Respiratory/Chest: Denies cough or dyspnea Gastrointestinal Gastrointestinal: Denies abdominal pain, diarrhea, nausea or vomiting Genitourinary Genitourinary ED: Denies dysuria Musculoskeletal Musculoskeletal: Denies myalgias Integumentary Denies rash Neurologic Neurologic: Denies headache(s) Hematologic/Lymphatic Hematologic/Lymphatic: Denies easy bleeding or easy bruising EXAM Physical Exam Const Vital Signs: 06/15/23 22:41 06/15/23 23:09 06/16/23 00:41 Temperature 97.6 F L Temperature Source Temporal Pulse Rate 68 Respiratory Rate 16 18 Respiratory Effort Normal Non-Labored Respiratory Pattern Normal Blood Pressure 119/73 Blood Pressure Mean 88 Pulse Ox 99 Positive well nourished, well developed and obese General Appearance ED: well developed Nutritional Appearance: obese HEENT Reports moist mucous membranes Eyes PERRL and EOMs intact bilaterally General Eye ED: Negative for scleral icterus Neck supple Resp normal respiratory effort and clear to auscultation bilaterally Cardio regular rate and regular rhythm Rate: other Other Details: Radial and carotid pulses are equal and symmetric GI normal to inspection, nondistended, normoactive bowel sounds, non-tender, non-distended and no masses Auscultation: normoactive bowel sounds Palpation: soft Extremity normal to inspection Neuro oriented x3, CN's II-XII intact bilaterally and no sensory deficits noted Sensorium / Orientation: alert Motor Exam: strength 5/5 throughout Psych mental status grossly normal Skin no rashes or lesions noted General Skin Exam: Negative for jaundice MDM MDM MDM Narrative Medical decision making narrative: Patient presented to the ER with stable vitals he is awake and alert with normal neurologic exam. Blood sugar was checked and is on the low side of normal at 67. Differential diagnosis is for insulin induced hypoglycemia versus infection versus unintentional overdose. As the patient states that he eats only breakfast and dinner and skips lunch but still is prescribed his insulin 3 times a day I do feel this is just secondary to the fact patient has not been eating with each insulin dose. He does not have any signs of infection on exam and he denies trying to overdose on his medication. Therefore the patient was given food upon arrival and watched in the ER for over 1 hour. On reevaluation he is awake and alert with normal neurologic exam blood sugar was rechecked and now is sitting at about 100. Therefore do not feel there is need for further work-up or further observation and patient can be discharged home with a change to his insulin dosing History & Record Review Discussion w/independent historian: Patient and Significant other Lab Data Attestation: I reviewed the patient's lab results. Labs: Laboratory Results - last 24 hr 06/15/23 06/16/23 22:48 00:34 POC Glucose 67 L 111 H Discharge Plan Triage Chief Complaint: Hypoglycemia ED Provider: Caleb Lama Dx/Rx/DC Orders Clinical Impression: Hypoglycemia, Hyperlipidemia, Hypertension Instructions: Hypoglycemia (Low Blood Sugar), ED Diabetic Insulin Reaction Prescriptions: No Action losartan 100 mg tablet 100 mg PO DAILY Qty: 90 pravastatin 40 mg tablet 40 mg PO QHS Qty: 90 aspirin [Adult Low Dose Aspirin] 81 mg tablet,delayed release (DR/EC) 81 mg PO DAILY omeprazole 40 mg capsule,delayed release(DR/EC) 40 mg PO DAILY spironolactone 50 mg tablet 50 mg PO DAILY Qty: 90 3RF (DME) OneTouch Ultra Test Strip See Rx Instructions .ROUTE .MEDSUPPLY Qty: 100 12RF Rx Instructions: 3 times daily (DME) lancets 33 gauge misc See Rx Instructions .ROUTE .MEDSUPPLY Qty: 100 11RF Rx Instructions: 3 times a day (DME) pen needle, diabetic [BD Ultra-Fine Ester Pen Needle] 32 gauge x 5/32 needle See Rx Instructions .Route Qty: 100 3RF Rx Instructions: TID Humulin R U-500 (Conc) Kwikpen 500 unit/mL (3 mL) insulin pen See Rx Instructions SC .TIDCM MDD 385 Qty: 69 1RF Rx Instructions: BREAKFAST 135 u LUNCH 135 u SUPPER 115 u subcutaneously (DME) FreeStyle Richard 2 Sensor Kit See Rx Instructions .Route Qty: 2 5RF Rx Instructions: 1 sensor q 14 days (DME) FreeStyle Richard 2 [place] Misc See Rx Instructions .Route Qty: 1 0RF Rx Instructions: As directed Primary Care Provider: Marcell Rodriguez Referrals: Marcell Rodriguez MD [Primary Care Provider] - Activity Restrictions/Additional Instructions: Based on the fact you do not typically eat lunch please change your insulin dosage to treatment in the morning with breakfast and in the evening at dinnertime but do not take the mid afternoon or lunchtime dose. Continue to monitor your blood sugars to make sure they are staying stable and return to the ER should you have any further concerns Disposition Disposition: Home, Self Care Discharge Date/Time: 06/16/23 00:46
[2023-06-16 00:53] LABS: Bedside Glucose 111 mg/dL (74-106)
== END 2023-06-16 00:46 | disposition home or self-care (01) ==
PROVIDERS: Emergency Provider Emergency Medicine; PCP Family Medicine; Visit Provider Emergency Medicine
DX: E11.649 Type 2 diabetes mellitus with hypoglycemia without coma (principal); Z79.4 Long term (current) use of insulin; I10 Essential (primary) hypertension; E78.5 Hyperlipidemia, unspecified; G47.30 Sleep apnea, unspecified; Z99.89 Dependence on other enabling machines and devices; Z79.82 Long term (current) use of aspirin
CPT/HCPCS: 82962; 99282